=== PATIENT | female | born 1995 | race Caucasian/White ===

== ENCOUNTER 2021-10-31 11:23 | Emergency (ER) | payer BC ==
--- OUTSIDE RECORDS SUMMARY | 2021-10-31 11:26 | XMS REPORT | Continuity of Care Document ---
:1995 Author Organization [facility] t Address [address] [place] [address] Care Team Providers Name Role Phone ZEYAD Attending Clinician Unavailable Nicole Attending Clinician Unavailable RICO, Attending Clinician Unavailable RICO, Admitting Clinician Unavailable Problems This patient has no known problems. Allergies, Adverse Reactions, Alerts Allergy Allergy Status Severity Reaction(s) Onset Inactive Treating Comm ents Source Name Type Date Date Clinician No Known DA Active [facility] Medications This patient has no known medications. Vital Signs Vital Name Observation Time Observation Value Comments Source Height 2019-07-15 12:53:00 167.64 CM Weight 2019-07-15 12:53:00 74.84 KG Procedures This patient has no known procedures. Encounters Start End Encounter Admission Attending Care Care Encounter Source Date/Time Date/Time Type Type Clinicians Facility Department ID 2019-12-04 2019-12-05 Outpatient CRISTIANA WILLS [facility] [id number] [facility] 22:02:00 17:13:00 NOHA 2019-11-25 2019-11-25 Outpatient AKHIL Rivera [id number] 09:32:00 09:32:00 Sukumar Son 2019-09-29 2019-09-29 Outpatient AKHIL Rivera [id number] 14:17:00 14:17:00 Sukumar Son 2019-07-15 2019-07-15 Outpatient E EMERITA GÓMEZ [facility] [id number] 12:43:00 14:15:00 [facility] [place] 2018-08-29 2018-08-29 Outpatient AKHIL Rivera [id number] 13:14:00 13:14:[address] DUMONTRyan 2017-08-09 2017-08-09 Outpatient AKHIL Rivera [id number] [facility] 13:06:00 13:06:00 Sukumar Son Results Test Description Test Time Test Comments Results Result Comments Source [facility] 8 Panel *OW* areli 2019-07-15 13:40:00 Test Item Value Reference Range Interpretation Comme nts GLUCOSE (test code = GGUL) 91 mg/dL 73-118 BUN (test code = GBUN) 12 mg/dL 7-22 CREATININE (test code = GCRE) 0.6 mg/dL 0.6-1.2 CK TOTAL (test code = GCK) 123 U/L 30-190 SODIUM (test code = GNA+) 141 mmol/L 128-145 POTASSIUM (test code = GK+) 3.4 mmol/L 3.6-5.1 L CHLORIDE (test code = GCL-) 101 mmol/L 98-108 TCO2 (test code = GTC02) 27 mmol/L 18-33 URINALYSIS W/O MICROSCOPICOW2019-07-15 13:40:00 Test Item Value Reference Range Interpretation Comments COLOR (test code = Yellow YELLOW COLU) CLARITY (test code = Clear CLEAR CLA) GLUCOSE UR (test Negative NEGATIVE code = UA GLUCOSE) BILI UR (test code = Negative NEGATIVE BILE) KETONES UR (test Negative NEGATIVE code = MARI) SP GRAVITY (test >=1.030 1.005-1.030 code = SPGR) PH UR (test code = 6.0 4.5-8.0 PH) PROTEIN UR (test Trace NEGATIVE code = PU) NITRITE UR (test Negative NEGATIVE code = NITRITE) UROBIL UR (test code 0.2 E.U./dL = GUROQ) UROBIL UR (test code UROBILINOGEN = GUROQC) REFERENCE RANGE 0.2 - 1.0 EU/dL BLOOD UR (test code Negative NEGATIVE = UA BLOOD) LEUK ES UR (test Negative NEGATIVE code = LEUK) CBC (INCLUDES AUTOMATED DIFFERENTIAL) *2019-07-15 13:29:00 Test Item Value Reference Range Interpretation Comments WBC (test code = WBC) 7.6 10\S\3/uL 4.5-11.0 RBC (test code = RBC) 4.64 10\S\6/uL 4.30-5.70 HGB (test code = HBG) 13.2 g/dL 12.0-15.5 HCT (test code = HCT) 41.7 % 35.0-44.0 MCV (test code = MCV) 89.8 fL 81.0-99.0 MCH (test code = MCH) 28.4 pg 27.0-31.0 MCHC (test code = MCHC) 31.7 g/dL 32.0-36.0 L RDW (test code = RDW) 11.7 % 11.5-14.5 PLT (test code = PLT) 344 10\S\3/uL 130-400 MPV (test code = OMPV) 7.2 fL 6.2-10.2 NEUTROP # (test code = NE#) 4.9 10\S\3/uL 1.6-8.0 LYMPH # (test code = LY#) 2.0 10\S\3/uL 1.1-3.5 MID # (test code = GMID#) 0.7 10\S\3/uL 0.0-1.1 GRA % (test code = GRA%) 65.0 % 35.0-73.0 LYMPH % (test code = GLY%) 25.7 % 20.0-55.0 MID % (test code = GMID%) 9.3 % 0.0-10.0
[2021-10-31] MEDS ORDERED: CYCLOBENZAPRINE 10 MG TAB ONE (12:22)
[2021-10-31] MEDS ORDERED: KETOROLAC 30 MG/ML INJ ONE (12:22)
[2021-10-31 12:26] LABS: Urine Blood Trace-intact (Negative); Urine Glucose Negative (Negative); Urine Protein Negative (Negative); Urine Specific Gravity 1.025 (1.005-1.030)
--- NOTE | 2021-10-31 12:55 | EDPHYS ---
Physician Documentation [facility] Name: Naeem Capone Age: 25 yrs Sex: Female : 1995 Arrival Date: 10/31/2021 Time: 11:25 Bed 9 Private MD: ED Physician Kurt Goodson HPI: 10/31 12:00 This 25 yrs old Female presents to ER via Ambulatory with complaints of Back Pain. [facility] 12:00 The symptoms are located in the low back. Onset: The symptoms/episode began/occurred 3 jh7 day(s) ago. The pain radiates to the left leg. Associated signs and symptoms: Pertinent negatives: chest pain, numbness, tingling, weakness. Patient presents with left lower back pain radiating down buttock, extending to the left leg. She denies any trauma/injury. Describes the pain as a spasm. Denies any urinary symptoms. Denies numbness, tingling, or any neurological symptoms.. 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 - Social history:: Smoking status: Patient denies any tobacco usage or history of. ROS: 12:00 Constitutional: Negative for fever, chills, and weight loss, Cardiovascular: Negative [facility] for chest pain, palpitations, and edema, Respiratory: Negative for shortness of breath, cough, wheezing, and pleuritic chest pain, Skin: Negative for injury, rash, and discoloration, Neuro: Negative for headache, weakness, numbness, tingling, and seizure. 12:00 Back: Positive for pain with movement, radiated pain. 12:00 All other systems are negative. Exam: 12:00 Constitutional: This is a well developed, well nourished patient who is awake, alert, jh7 and in no acute distress. Cardiovascular: Regular rate and rhythm with a normal S1 and S2. No gallops, murmurs, or rubs. Normal PMI, no JVD. No pulse deficits. Respiratory: Lungs have equal breath sounds bilaterally, clear to auscultation and percussion. No rales, rhonchi or wheezes noted. No increased work of breathing, no retractions or nasal flaring. Abdomen/GI: Soft, non-tender, with normal bowel sounds. No distension or tympany. No guarding or rebound. No evidence of tenderness throughout. Skin: Warm, dry with normal turgor. Normal color with no rashes, no lesions, and no evidence of cellulitis. MS/ Extremity: Pulses equal, no cyanosis. Neurovascular intact. Full, normal range of motion. Neuro: Awake and alert, GCS 15, oriented to person, place, time, and situation. Motor strength 5/5 in all extremities. Sensory grossly intact. Normal gait. 12:00 Back: pain, that is moderate, of the left low back, CVA tenderness, is absent, Left lower back/buttock pain radiating down left lower extremity, worsening with movement. There is no tenderness to palpation, bruising, swelling, or any signs of injury/trauma. . 12:00 Neuro: Orientation: is normal, Sensation: is normal, Gait: is steady. [facility] Vital Signs: 11:55 BP 120 / 76; Pulse 65; Resp 16 S; Temp 98.0(TE); Pulse Ox 99% on R/A; Weight 71.21 kg aa5 (R); Height 5 ft. 8 in. (172.72 cm) (R); Pain 7/10; 11:55 Body Mass Index 23.87 (71.21 kg, 172.72 cm) aa5 MDM: 12:02 Patient medically screened. [facility] 13:00 Data reviewed: vital signs, nurses notes. Data interpreted: Pulse oximetry: is 99 %. [facility] Interpretation: normal. Counseling: I had a detailed discussion with the patient and/or guardian regarding: the historical points, exam findings, and any diagnostic results supporting the discharge/admit diagnosis, to return to the emergency department if symptoms worsen or persist or if there are any questions or concerns that arise at home. 13:00 ED course: The patient remained hemodynamically stable throughout the ER visit. Her [facility] symptoms significantly improved after Toradol administration. Clinical presentation consistent with sciatica. She was prescribed anti-inflammatories and muscle relaxers. PCP follow-up advised. She develops any new concerning symptoms, return to the ER for further eval. The patient agreed with the plan of care.. 10/31 12:27 Order name: Urine Dipstick-Ancillary; Complete Time: 12:31 [facility] 10/31 12:46 Order name: Urine --Ancillary (enter results) bd Administered Medications: 12:33 Drug: Ketorolac 60 mg Route: IM; Site: left gluteus; aa5 13:16 Follow up: Response: No adverse reaction ss 12:33 Drug: Flexeril (cyclobenzaprine) 10 mg Route: PO; aa5 13:16 Follow up: Response: No adverse reaction; Marked relief of symptoms ss Disposition: 18:15 Co-signature as Attending Physician, Kurt Goodson MD. rn Disposition Summary: 10/31/21 12:55 Discharge Ordered Location: Home [facility] Problem: new [facility] Symptoms: have improved [facility] Condition: Stable [facility] Diagnosis - Sciatica, left side jh7 Followup: [facility] - With: Private Physician - When: 2 - 3 days - Reason: Recheck today's complaints Discharge Instructions: - Discharge Summary Sheet [facility] - Sciatica [facility] - Back Exercises [facility] Forms: - Work release form ss - Medication Reconciliation Form [facility] - Thank You Letter [facility] Prescriptions: - Naprosyn 500 mg Oral Tablet - take 1 tablet by ORAL route 2 times per day take with food; 30 tablet; Refills: [facility] 0, Product Selection Permitted - Zanaflex 4 mg Oral Tablet - take 1 tablet by ORAL route every 8 hours As needed; 20 tablet; Refills: 0, jh7 Product Selection Permitted Signatures: Dispatcher [employer] Kurt Pearce MD MD rn Calderon, Audri, RN RN aa5 Matilde Noel FNP [place] [id number] Marilu Abraham RN
--- NOTE | 2021-10-31 12:55 | ER ---
Nurse's Notes [facility] Name: Naeem Capone Age: 25 yrs Sex: Female : 1995 Arrival Date: 10/31/2021 Time: 11:25 Bed 9 Private MD: Diagnosis: Sciatica, left side Presentation: 10/31 11:55 Chief complaint: Patient states: left low back pain radiating down left leg that began aa5 Saturday. Coronavirus screen: At this time, the client does not indicate any symptoms associated with coronavirus-19. Ebola Screen: No symptoms or risks identified at this time. Initial Sepsis Screen: Does the patient meet any 2 criteria? No. Patient's initial sepsis screen is negative. Does the patient have a suspected source of infection? No. Patient's initial sepsis screen is negative. Risk Assessment: Do you want to hurt yourself or someone else? Patient reports no desire to harm self or others. Onset of symptoms was October 2021. 11:55 Method Of Arrival: Ambulatory aa5 11:55 Acuity: STEPHEN 4 aa5 Triage Assessment: 11:56 General: Appears uncomfortable, Behavior is calm, cooperative. Pain: Complains of pain aa5 in left low back Pain radiates to left leg. EENT: No signs and/or symptoms were reported regarding the EENT system. Neuro: Level of Consciousness is awake, alert, obeys commands, Oriented to person, place, time, situation. Cardiovascular: Patient's skin is warm and dry. Respiratory: Airway is patent Respiratory effort is even, unlabored, Respiratory pattern is regular, symmetrical. GI: No signs and/or symptoms were reported involving the gastrointestinal system. : Denies burning with urination, inability to void, urinary frequency, urgency. Derm: Skin is pink, warm \T\ dry. Musculoskeletal: Range of motion: intact in all extremities. 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 - Social history:: Smoking status: Patient denies any tobacco usage or history of. Screenin:16 Abuse screen: Denies threats or abuse. Denies injuries from another. Nutritional ss screening: No deficits noted. Tuberculosis screening: Never had TB. Fall Risk None identified. Assessment: 12:33 Reassessment: Patient is alert, oriented x 3, equal unlabored respirations, skin aa5 warm/dry/pink. 13:16 Reassessment: Patient appears in no apparent distress at this time. Patient and/or ss family updated on plan of care and expected duration. Pain level reassessed. Patient is alert, oriented x 3, equal unlabored respirations, skin warm/dry/pink. Patient states feeling better. Patient states symptoms have improved. Vital Signs: 11:55 BP 120 / 76; Pulse 65; Resp 16 S; Temp 98.0(TE); Pulse Ox 99% on R/A; Weight 71.21 kg aa5 (R); Height 5 ft. 8 in. (172.72 cm) (R); Pain 7/10; 11:55 Body Mass Index 23.87 (71.21 kg, 172.72 cm) aa5 ED Course: 11:25 Patient arrived in ED. mr 11:50 Matilde Noel, [facility] 11:50 Kurt Goodson MD is Attending Physician. 7 11:54 Arm band placed on. aa5 11:56 Triage completed. aa5 12:12 Nellie Bella, RN is Primary Nurse. aa5 13:16 Patient has correct armband on for positive identification. Bed in low position. Call ss light in reach. 13:16 No provider procedures requiring assistance completed. Patient did not have IV access ss during this emergency room visit. Administered Medications: 12:33 Drug: Ketorolac 60 mg Route: IM; Site: left gluteus; aa5 13:16 Follow up: Response: No adverse reaction ss 12:33 Drug: Flexeril (cyclobenzaprine) 10 mg Route: PO; aa5 13:16 Follow up: Response: No adverse reaction; Marked relief of symptoms ss Medication: 13:16 VIS not applicable for this client. ss Outcome: 12:55 Discharge ordered by . [facility] 13:16 Discharged to home ambulatory. ss 13:16 Condition: good 13:16 Discharge instructions given to patient, family, Instructed on discharge instructions, follow up and referral plans. medication usage, Demonstrated understanding of instructions, follow-up care, medications, Prescriptions given X 2. 13:16 Patient left the ED. Signatures: Luis Carlos Yolette matthews BellaNellie bowman RN RN aa5 Marilu Abraham RN RN Matilde Cooley, OCCUPATIONAL PSYCHOLOGIST OCCUPATIONAL PSYCHOLOGIST jh7 Corrections: (The following items were deleted from the chart) 11:56 11:55 BP 120 / 76; Pulse 65bpm; Resp 16bpm; Spontaneous; Pulse Ox 99% RA; Temp 98.0F aa5 Temporal; 71.21 kg Reported; Height 5 ft. 8 in. Reported; BMI: 23.8; aa5
[2021-10-31 13:22] VITALS: BP 120/76; TEMP 98; O2SAT 99
[2021-10-31 16:03] LABS: Urine Specific Gravity/Preg 1.025 (1.005-1.030)
== END 2021-10-31 13:16 | disposition home or self-care (01) ==
LOC: ER 11:23
DX: M54.32 Sciatica, left side (principal)
CPT/HCPCS: 81003; 81025; 96372; 99283

== ENCOUNTER 2022-05-27 17:39 | Emergency (ER) | payer BC ==
--- OUTSIDE RECORDS SUMMARY | 2022-05-27 17:51 | XMS REPORT | Continuity of Care Document ---
:1995 Author Organization [facility] t Address [address] [place] [address] Care Team Providers Name Role Phone Kaitlynn Buenrostro Attending Clinician Kin Broderick Attending Clinician KIN BRODERICK Attending Clinician Unavailable Melecio Ulrich Attending Clinician Laly Blake Attending Clinician GABRIEL JEFFERS Attending Clinician Unavailable Gabriel Jeffers Attending Clinician Sukumar Rivera Attending Clinician Unavailable DR EMERITA GÓMEZ Attending Clinician Unavailable Kenny Hayes Attending Clinician Bryn Agustin Attending Clinician Tae Santamaria Attending Clinician DR EMERITA GÓMEZ Admitting Clinician Unavailable Problems Condition Condition Condition Status Onset Resolution Last Treating Co mments Source Name Details Category Date Date Treatment Clinician Date Patient Patient Diagnosis Active 2021-062022-04-16 Memoria encounter encounter 06-13 04:11:35 l status status 00:00: Migel (finding) (finding) 00 Active 04/13/2022 Diagnosis 04/16/2022 [facility] ABD PAIN ABD PAIN Diagnosis Active 2022-01-08 Memoria Active 01-08 13:32:00 l 01/08/2022 00:00: Shawn matthew [address] HEAD HEAD Diagnosis Active 2019-062020-06-14 Mem oria INJURY/FAL INJURY/FAL 07-07 13:23:00 l L L Active 00:00: Migel 05/07/2020 00 [facility] CHEST PAIN CHEST Diagnosis Active 2021-02-08 Memoria PAIN 12-03 09:10:00 l Active 00:00: [place] 12/04/2019 00 [facility] Contracept Problem Active 2022-02-23 M emoria ion care Contracept 12-31 00:09:25 l management ion care 00:00: Barb isbell (procedure management 00 ) (procedure ) Active 12/31/2014 Problem 02/23/2022 Data migrated from [employer] on 01/12/15. [facility] Fibrocysti Fibrocyst Problem Active 2022-02-23 Memoria c disease ic disease 3 00:09:25 l of breast of breast 00:00: Barb isbell (disorder) (disorder) 00 Active 08/18/2014 Problem 02/23/2022 Data migrated from [employer] on 12/15/14. [facility] Headache Headache Problem Active 2022-02-23 Memoria (finding) (finding) 3 00:09:25 l Active 00:00: Migel 08/18/2014 00 Problem 02/23/2022 Data migrated from [employer] on 12/15/14. [facility] Nausea and Nausea Problem Active 2021-06-26 Memoria vomiting and 3 23:46:04 l (disorder) vomiting 00:00: Barb akilah (disorder) 00 Active 08/18/2014 Problem 06/26/2021 Data migrated from [employer] on 12/15/14. [facility] Contusion Contusion Problem Active 2022-02-23 Memoria (disorder) (disorder) 2-10 00:09:25 l Active 00:00: Migel 07/20/2014 00 Problem 02/23/2022 Data migrated from [employer] on 12/15/14. Medical Group,[facility] Low back Low back Problem Active 2022-02-23 Memoria pain pain 9- 00:09:25 l (disorder) (disorder) 00:00: He rmann Active 00 02/12/2014 Problem 02/23/2022 Data migrated from [employer] on 11/06/14. Medical Group,[facility] Scoliosis Scoliosis Problem Active 2022-02-23 Memoria deformity deformity 02-12 00:09:25 l of spine of spine 00:00: Shawn n (disorder) (disorder) 00 Active 02/12/2014 Problem 02/23/2022 Data migrated from [employer] on 11/06/14. Medical Group,[facility] Dyspnea Dyspnea Problem Active 2022-02-23 Me moria (finding) (finding) 01-04 00:09:25 l Active 00:00: Migel 01/04/2014 00 Problem 02/23/2022 Data migrated from [employer] on 11/06/14. Medical Group,[facility] Asthma Asthma Problem Active 2017-11-12 Mem oria (disorder) (disorder) 7- 11:01:28 l Active 00:00: [place] 12/17/2013 00 Problem 11/12/2017 Data migrated from [employer] on 11/06/14. Medical Group Malaise Malaise Problem Active 2012-062021-06-26 Me moria and and 0 23:46:04 l fatigue fatigue 00:00: [place] (finding) (finding) 00 Active 03/24/2013 Problem 06/26/2021 Data migrated from [employer] on 11/06/14. Medical Group,[facility] Deformity Deformity Problem Active 2022-02-23 Memoria of foot of foot 8-20 00:09:25 l (finding) (finding) 00:00: Herm akilah Active 00 01/27/2013 Problem 02/23/2022 Data migrated from [employer] on 11/06/14. Medical Group,[facility] Pes planus Pes Problem Active 2022-02-23 Darek mcmahan (disorder) planus 8 00:09:25 l (disorder) 00:00: Shawn matthew Active 00 01/27/2013 Problem 02/23/2022 [facility] 11/06/14. Medical Group,[facility] OTHER OTHER Diagnosis Active 2012-10-24 Mem oria Active 10-24 18:26:00 l 10/24/2012 12:00: Shawn n [place] [address] [address] SNAKE BITE SNAKE Diagnosis Active 2012-10-22 Memoria BITE 10-16 21:46:00 l Active 00:00: Migel 10/16/[address] [facility] POSS SNAKE POSS Diagnosis Active 2012-10-16 Memoria BITE ON SNAKE BITE 10-16 11:07:00 l FOOT ON FOOT 00:00: Migel Active 00 10/16/2012 [place] FLANK FLANK Diagnosis Active 2012-07-22 Mem oria PAIN-LEFT PAIN-LEFT 07-22 12:19:00 l SIDE SIDE 00:00: Migel Active 00 07/22/2012 [facility] ASTHMA ASTHMA Condition Active 2012-07-29 Me moria Active 12-05 09:59:54 l 12/06/2011 00:00: Shawn n Condition 00 07/29/2012 [facility] ADHD ADHD Condition Active 2012-07-29 Mem oria Active 12-05 09:59:54 l 12/06/2011 00:00: Shawn n Condition 00 07/29/2012 [facility] ABDOMINAL Diagnosis Active 2011-11-28 Memoria PAIN,FEVER ABDOMINAL 11-24 08:14:00 l , PAIN,FEVER 08:00: Shawn matthew , Active 00 11/25/2011 [place] TOXIC TOXIC Diagnosis Active 2012-10-22 Mem oria EFFECT EFFECT 21:46:00 l VENOM VENOM [place] Active 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 09:59:54 l LEG JOINT LOWER LEG Herm akilah KNEE JOINT KNEE Active Condition 07/29/2012 [facility] BACK PAIN, BACK Condition Active 2012-07-29 Memoria LUMBAR PAIN, 09:59:54 l LUMBAR [place] Active Condition 07/29/2012 [facility] Attention Attention Problem Active 2022-05-21 Memoria deficit deficit 10:37:33 l hyperactiv hyperactiv He rmann ity ity disorder disorder (disorder) (disorder) Active Problem 05/21/2022 [facility] Finding of Finding Problem Active 2022-05-21 Memoria protein of protein 10:37:33 l level level Migel (finding) (finding) Active Problem 05/21/2022 [facility] Anxiety Anxiety Problem Active 2022-05-21 Me moria (finding) (finding) 10:37:33 l Active [place] Problem 05/21/2022 [facility] 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 Anxiety Anxiety Diagnosis 2021-062022-04-16 2022-04-16 Memoria disorder disorder 1-04 04:11:35 04:11:35 l (disorder) (disorder) 16:02: He rmann 04/13/2022 00 Diagnosis 04/16/2022 Medical Group Recurrent Recurrent Diagnosis 2021-062022-04-16 2022-04-16 Memoria major major 1-04 04:11:35 04:11:35 l depression depression 16:02: He rmann (disorder) (disorder) 00 04/13/2022 Diagnosis 04/16/2022 Medical Group Well adult Well Diagnosis 2021-062022-04-16 2022-04-16 Memoria monitoring adult 1- 04:11:35 04:11:35 l check done monitoring 16:02: He rmann (finding) check done 00 (finding) 04/13/2022 Diagnosis 04/16/2022 Medical Group Epigastric Epigastri Problem Resolve 2022-02-23 2022-02-23 Memoria pain c pain d 3-11 00:09:25 00:09:25 l (finding) (finding) 00:00: Herm akilah Resolved 00 08/18/2014 Problem 02/23/2022 Data migrated from [employer] on 12/15/14. Medical Group,[facility] Snake bite Snake Problem Resolve 2022-02-23 2022-02-23 Memoria - wound bite - d 5-09 00:09:25 00:09:25 l (disorder) wound 00:00: Shawn n (disorder) 00 Resolved 10/16/2012 Problem 02/23/2022 Data migrated from [employer] on 12/25/14.<b r/>Data migrated from [employer] on 12/24/14. Medical Group,[facility] Backache Backache Problem Resolve 2011-062022-02-23 2022-02-23 Memoria (finding) (finding) d 0-04 00:09:25 00:09:25 l Resolved 00:00: Migel 03/13/2012 00 Problem 02/23/2022 Data migrated from [employer] on 12/25/14.<b r/>Data migrated from [employer] on 12/24/14. Medical Group,[facility] Acute Acute Problem Resolve 2022-02-232022-022022-02-23 Memoria pharyngiti pharyngiti d 9 00:09:25 00:09:25 l s s 00:00: Migel (disorder) (disorder) 00 Resolved 02/13/2012 Problem 02/23/2022 Data migrated from [employer] on 12/25/14.<b r/>Data migrated from [employer] on 12/25/14.<b r/>Data migrated from [employer] on 12/24/14.<b r/>Data migrated from [employer] on 12/24/14. Medical [facility] Viral Viral Problem Resolve 2022-02-23 2022-02-23 Memoria disease disease d 11-16 00:09:25 00:09:25 l (disorder) (disorder) 00:00: He rmann Resolved 00 11/17/2011 Problem 02/23/2022 Data migrated from [employer] on 12/25/14.<b r/>Data migrated from [employer] on 12/24/14. Medical [facility] History of Past Illness Condition Condition Condition Status Onset Resolution Last Treating Co mments Source Name Details Category Date Date Treatment Clinician Date Gastritis, Gastritis Problem 2022-01-10 2022-01-10 Memoria unspecifie , 01-08 23:04:12 23:04:12 l d, without unspecifie 20:16: He rmakilah bleeding d, without 00 bleeding 01/08/2022 01/10/2022 [facility] Major Major Problem 2021-10-22 2021-10-22 M emoria depressive depressive 10-19 02:37:49 02:37:49 l disorder, disorder, 16:31: Herm akilha recurrent, recurrent, 00 unspecifie unspecifie d d 10/19/2021 2 [facility] Group Anxiety Anxiety Problem 2021-10-22 2021-10-22 Memoria disorder, disorder, 10-19 02:37:49 02:37:49 l unspecifie unspecifie 16:31: He rmann d d 00 10/19/2021 2 [facility] Group Other Other Problem 2021-10-22 2021-10-22 M emoria fatigue fatigue 10-19 02:37:49 02:37:49 l 10/19/2021 16:30: Shawn n 10/22/2021 00 Medical Group Attention- Attention Problem 2021-2021-10-22 2021-10-22 Memoria deficit -deficit 10-19 02:37:49 02:37:49 l hyperactiv hyperactiv 16:30: He maggie ity ity 00 disorder, disorder, unspecifie unspecifie d type d type 10/19/2021 10/22/2021 Medical Group Unspecifie Unspecifi Problem 2019-062020-05-09 2020-05-09 Memoria d injury ed injury 07-07 22:06:03 22:06:03 l of head, of head, 18:00: Shawn n initial initial 00 encounter encounter 05/07/2020 05/09/2020 [facility] Sprain of Sprain of Problem 2019-062020-05-09 2020-05-09 Memoria joints and joints and 07-07 22:06:03 22:06:03 l ligaments ligaments 18:00: Herm akilah of of 00 unspecifie unspecifie d parts of d parts of neck, neck, initial initial encounter encounter 05/07/2020 05/09/2020 [facility] Abrasion Abrasion Problem 2019-062020-05-09 2020-05-09 Memoria of scalp, of scalp, 07-07 22:06:03 22:06:03 l initial initial 18:00: Migel encounter encounter 00 05/07/2020 0 [facility] Discharge Discharge Problem 2014-09-17 2014-09-17 Memoria Diagnosis: Diagnosis: 09-15 19:58:37 19:58:37 l Acute Acute 05:00: Migel asthma asthma 00 exacerbati exacerbati on on 09/15/2014 5 [facility] [place] Allergies, Adverse Reactions, Alerts Allergy Allergy Status Severity Reaction(s) Onset Inactive Treating Comm ents Source Name Type Date Date Clinician No Known DA Active [facility] Social History Social Habit Start Date Stop Date Quantity Comments Source Social History 2020-05-07 2020-05-07 [facility] 09:32:15 09:32:15 Smoking Status Start Date Stop Date Source Tobacco smoking status [facility] Medications Ordered Filled Start Stop Current Ordering Indication Dosage Frequency Signature Comments Components Source Medication Medication Date Date Medication? Clinician (SIG) Name Name Prateek Odonnell 2021-06 Yes 40 mg = 1 Me moria mg oral 2-09 cap, PO, l capsule 15:07: QAM, # 30 Past[place] nn 00 cap, 0 Refill(s), Pharmacy: [id number], 172.72, cm, 04/13/22 13:37:00 CDT, Height, 66.364, kg, 04/13/22 13:41:00 CDT, Weight Prateek 40 2021-06 Yes 40 mg = 1 Me moria mg oral 0-25 cap, PO, l capsule 21:14: QAM, # 30 Pastora nn 00 cap, 0 Refill(s), Pharmacy: [facility] #[id number], 172.72, cm, 01/08/22 14:13:00 CDT, Height, 69.4, kg, 01/08/22 14:13:00 CDT, Weight Prateek 40 Yes 40 mg = 1 Me moria mg oral 9-12 cap, PO, l capsule 18:25: QAM, # 30 Pastora nn 00 cap, 0 Refill(s), Pharmacy: [facility] #[id number], 172.72, cm, 01/08/22 14:13:00 CDT, Height, 69.4, kg, 01/08/22 14:13:00 CDT, Weight Pepcid 20 Yes 20 mg = 1 Mem oria mg oral 8-01 tab, PO, l tablet 20:17: BID, # 60 Shawn n 00 tab, 0 Refill(s), Pharmacy: [facility] #[id number], 172.72, cm, 01/08/22 14:13:00 CDT, Height, 69.4, kg, 01/08/22 14:13:00 CDT, Weight Carafate 1 Yes 1 gm = 10 Me moria g/10 mL 8-01 ml, PO, l oral 20:17: QID-Before [place] suspension 00 Meals, # 400 ml, 0 Refill(s), Pharmacy: [facility] #[id number], 172.72, cm, 01/08/22 14:13:00 CDT, Height, 69.4, kg, 01/08/22 14:13:00 CDT, Weight Saline No Notes: Memoria Flush 0.9% 01-08 (Same as: l 16:48: BD Migel 00 Posiflush) Sodium No 1,000 mL, Memori a Chloride 01-08 1000 l 0.9% 16:48: ml/hr, [place] (Bolus) IV 00 Infuse Over: 1 hr, Route: IV, 1,000, Drug form: INJ, ONCE, Priority: STAT, Dosing Weight 69.4 kg, Start date: 01/08/22 11:48:00 CDT, Stop date: 01/08/22 11:48:00 CDT, 0 ondansetron No Notes: Rafal roxanna 01-08 (Same as: l 16:48: Zofran) [place] 00 MEDICATION WASTE Product Size: 4 mg Product Wasted: __0_ mg famotidine No Notes: Memor ia 01-08 (Same as: l 16:48: Pepcid) [place] Can be dilute in 5-10cc NS IVP: Slow IV push over at least 2 minutes. GI cocktail No Notes: Rafal roxanna WITHOUT 01-08 (aluminum l lidocaine 16:47: hydroxide- He rmann (aluminum 00 magnesium hydroxide/m hyd-simeth agnesium icone hydroxide/s 200-200-20 imethicone) mg/5ml 30 ml ud PAULINA) Vyvanse 40 Yes 40 mg = 1 Me moria mg oral 7-26 cap, PO, l capsule 22:48: QAM, # 30 Pastora nn 00 cap, 0 Refill(s), Pharmacy: [facility] #[id number], 172.72, cm, 03/28/21 16:34:00 CDT, Height, 72.727, kg, 10/19/21 11:02:00 CDT, Weight Vyvanse 30 Yes 30 mg = 1 Me moria mg oral 5-12 cap, PO, l capsule 16:26: QAM, # 30 Pastora nn 00 cap, 0 Refill(s), Pharmacy: [facility] #[id number], 172.72, cm, 03/28/21 16:34:00 CDT, Height, 72.727, kg, 10/19/21 11:02:00 CDT, Weight lisdexamfet Yes 20 mg = 1 M emoria amine 1-14 cap, PO, l dimesylate 22:14: QAM, # 30 He rmann 20 MG Oral 00 tab, 0 Capsule Refill(s), [Vyvanse] Pharmacy: [facility] #[id number], 172.72, cm, 03/28/21 16:34:00 CDT, Height, 70.455, kg, 03/28/21 16:35:00 CDT, Weight lisdexamfet 2020-06 Yes 20 mg = 1 M emoria amine 1-16 cap, PO, l dimesylate 22:49: QAM, # 30 He rmann 20 MG Oral 00 tab, 0 Capsule Refill(s), [Vyvanse] Pharmacy: [facility] #[id number], 172.72, cm, 03/28/21 16:34:00 CDT, Height, 70.455, kg, 03/28/21 16:35:00 CDT, Weight FLUoxetine 2020-06 Yes 10 mg = 1 Me moria 10 mg oral 0-19 cap, PO, l capsule 21:45: Daily, # Shawn n 00 90 cap, 0 Refill(s), Pharmacy: [facility] #[id number], 172.72, cm, 03/28/21 16:34:00 CDT, Height, 70.455, kg, 03/28/21 16:35:00 CDT, Weight non-formula 2020-06 Yes Memor ia ry 0-19 control, l 21:38: Refill(s) Migel 00 0 influenza 2020-06 No /= 6 Memoria virus 0-04 months l vaccine, 20:17: (FLUZONE). Her maldonado inactivated 00 , Start date: 03/13/21 15:17:00 CDT, Stop date: 03/13/21 15:17:00 CDT lisdexamfet 2020-06 Yes 20 mg = 1 M emoria amine 0-04 cap, PO, l dimesylate 20:09: QAM, # 30 He rmann 20 MG Oral 00 tab, 0 Capsule Refill(s), [Vyvanse] Pharmacy: [id number], 172.72, cm, 03/13/21 14:28:00 CDT, Height, 70.455, kg, 03/13/21 14:28:00 CDT, Weight Acetaminoph 2019-06 No Notes: Do M emoria en 300 MG / 07-07 not exceed l Codeine 10:01: 4gm/day of Herm akilah Phosphate 00 acetaminop 30 MG Oral hen. (Same Tablet as: [Tylenol Tylenol with with Codeine #3] Codeine # 3) 0.5 ML 2019-06 No Notes: Memoria Bordetella 07-07 Therapeuti l pertussis 09:52: c Migel filamentous 00 Interchang hemagglutin e for in vaccine, Boostrix inactivated 0.016 MG/ML / Bordetella pertussis pertactin vaccine, inactivated 0.005 MG/ML / Bordetella pertussis toxoid vaccine, inactivated 0.016 MG/ML / diphtheria toxoid vaccine, inactivate Zofran ODT 2019-06 No 4 mg, Memori a 07-07 Route: PO, l 09:28: Drug form: Migel 00 TABDIS, ONCE, Dosing Weight 83.864, kg, Priority: STAT, Start date: 05/07/20 3:28:00 TUR[employer] EGG G[employer]ER, Stop date: 05/07/20 3:28:00 TUR[employer] EGG GATH[employer]ER Aspirin Low Yes 81 mg = 1 M emoria Dose 81 mg 6-27 tab, CHEW, l oral 21:19: Daily, # Migel tablet, 00 30 tab, 0 chewable Refill(s), Pharmacy: [id number], 172.72, cm, 12/05/19 0:45:00 CDT, Height, 79.773, kg, 12/05/19 0:45:00 CDT, Weight Saline No Notes: Memoria Flush 0.9% 6-27 (Same as: l 14:00: BD Migel 00 Posiflush) Citalopram No Notes: Memor ia - (Same As: l 14:00: CeleXA) Lovenox No Notes: Memoria - (Same as: l 10:00: Lovenox) Albuterol No Notes: SEE Me moria 0.83 MG/ML 12-04 RT l Inhalant 04:27: DOCUMENTAT Her maldonado Solution 00 ION (Same as: Proventil) morphine No Notes: Memoria 0.5 mg/mL 12-04 (Same l preservativ 04:26: as:MORPhin Migel e-free 00 e Sulfate) injectable solution Acetaminoph No Notes: Rafal roxanna en 325 MG / 12-04 (Same as: l Hydrocodone 04:26: [place] Pastora nn Bitartrate 00 325/5) Do 5 MG Oral not exceed Tablet 4gm/day of [[place] acetaminop 5/325] hen. Dextrose No 12.5 gm, Memor ia 50% Syringe 12-04 25 mL, l (D50W) 04:25: Route: IVP, Drug Form: INJ, Dosing Weight 83.8, kg, PRN, PRN Blood Glucose Results, Start date: 12/04/19 23:25:00 CDT, Duration: 30 day, Stop date: 01/03/20 23:24:00 CDT, 0 Glucagon No 1 mg, Memoria 12-04 Route: IM, l 04:25: Drug form: PDR/INJ, PRN, Dosing Weight 83.8, kg, PRN Blood Glucose Results, Start date: 12/04/19 23:25:00 CDT, Duration: 30 day, Stop date: 01/03/20 23:24:00 CDT, 0 Ondansetron No Notes: Rafal roxanna - (Same as: l 04:25: Zofran) MEDICATION WASTE Product Size: 4 mg Product Wasted: ___ mg Melatonin No Notes: Memori a 12-04 (Same as: l 04:25: Melatonin) Acetaminoph No Notes: Do M emoria en 12-04 not exceed l 04:25: 4 gm/day. Migel (Same as: Tylenol) citalopram Yes 10 mg = 1 Me moria 10 mg oral 12-04 tab, PO, l tablet 04:00: Daily, # Migel 00 30 tab, 0 Refill(s) Nitroglycer No Notes: Rafal roxanna in 12-04 (Same l 03:20: as:Nitroqu [place] 00 ick, Nitrostat) "Do Not Crush" Sublingual tablet Saline No Notes: Memoria Flush 0.9% 12-04 (Same as: l 03:20: BD [place] Posiflush) Omnipaque No Notes: Memori a 350 12-04 (same l injectable 02:07: as:Omnipaq H ermann solution ue 350). WASTE: F/P - Black; E - [employer] Aspirin 81 No 324 mg, Rafal roxanna MG Chewable 12-04 Route: PO, l Tablet 02:02: Drug form: Pastora nn 00 CHEWTAB, ONCE, Dosing Weight 83.8, kg, Priority: STAT, Start date: 12/04/19 21:02:00 CDT, Stop date: 12/04/19 21:02:00 CDT Morphine No 4 mg, Memoria 12-04 Route: l 02:02: IVP, ONCE, Dosing Weight 83.8, kg, Priority: STAT, Start date: 12/04/19 21:02:00 CDT, Stop date: 12/04/19 21:02:00 CDT Saline No Notes: Memoria Flush 0.9% 12-03 (Same as: l 23:56: BD Migel Posiflush) Sodium No 1,000 mL, Memori a Chloride 12-03 1000 l 0.9% 23:56: ml/hr, Migel (Bolus) IV 00 Infuse Over: 1 hr, Route: IV, 1,000, Drug form: INJ, ONCE, Priority: STAT, Dosing Weight 83.8 kg, Start date: 12/04/19 18:56:00 CDT, Stop date: 12/04/19 18:56:00 CDT, 0 Ketorolac No 4 days Memor ia 6-26 l 23:56: MEDICATION Migel 00 WASTE Product Size: 30 mg Product Wasted: ___ mg ProAir HFA Yes 2 puff, Rafal roxanna 90 mcg/inh 9-16 INHALER, l inhalation 20:15: Q4H, PRN Her maldonado aerosol 00 for with wheezing, adapter # 1 ea, 6 Refill(s) predniSONE Yes Special Rafal roxanna 20 mg oral 4-08 Instructio l tablet 08:13: ns: Take 3 Pastora nn 00 tablets for 60 mg dose albuterol Yes 2 puff, Memor ia 90 mcg/inh 4-08 INHALATION l inhalation 08:13: , Q6H, PRN H ermann aerosol 00 Wheezing, # 2 unit, 0 Refill(s) clindamycin Yes Juan Francisco C 300 mg, 1 Memoria 300 mg oral 5-18 Johnson cap, PO, l capsule 00:56: Q6H, 40 [place] 44 cap, Substituti on Allowed clindamycin No Juan Francisco C 600 mg, Memoria 5-17 Johnson Route: l 23:41: IVPB, Migel 00 ONCE, Dosing Weight 48.892, kg, Pediatric dosing, Priority: STAT, Start date: 10/24/12 18:41:00, Stop date: 10/24/12 18:41:00, Patient's Own Meds: Zofran No Juan Francisco C 4 mg, Memoria 5-17 Johnson Route: l 23:40: IVP, Drug form: INJ, ONCE, Dosing Weight 48.892, kg, Priority: STAT, Start date: 10/24/12 18:40:00, Stop date: 10/24/12 18:40:00 morphine No Juan Francisco C 1 mg, Memor ia Sulfate 5-17 Johnson Route: l 23:40: IVP, ONCE, [place] 00 Dosing Weight 48.892, kg, Start date: 10/24/12 18:40:00, Stop date: 10/24/12 18:40:00 morphine No Soumya Loan 2 mg, 1 Memoria Sulfate 5-10 Cordon mL, Route: l 19:51: IV, Drug form: INJ, Q4H, Dosing Weight 48.5, kg, PRN Pain Score 7-10, Start date: 10/17/12 14:51:00, Duration: 30 day, Stop date: 11/16/12 14:50:00, Pediatric DosingPedi atric Dosing ibuprofen 2012- No Oumou M 400 mg, 1 Memoria 5-10 Braly tab, l 18:53: Route: PO, Drug form: TAB, Q6H, Dosing Weight 48.5, kg, PRN Pain/Fever , Start date: 10/17/12 13:53:00, Duration: 30 day, Stop date: 11/16/12 13:52:00, > 40 kg; Pediatric Dosing 40 kg; Pediatric Dosing clindamycin No Soumya Loan 485 mg, Memoria 5-10 Cordon 48.5 mL, l 02:30: Route: IV, Drug form: INJ, ABXQ6H, Dosing Weight 48.5, kg, Start date: 10/16/12 21:30:00, Duration: 30 day, Stop date: 11/15/12 15:30:00, Pediatric DosingPedi atric Dosing morphine 2012- No Oumou M 2 mg, 1 Memoria Sulfate 5-10 Braly mL, Route: l 01:51: IV, Drug form: INJ, Q4H, Dosing Weight 48.5, kg, PRN Pain Score 7-10, Start date: 10/16/12 20:51:00, Duration: 30 day, Stop date: 11/15/12 20:50:00, Pediatric DosingPedi atric Dosing morphine 2012-0 No Matthew 5 mg, Memoria Sulfate 5-10 Juan Alberto Route: IV, l 01:37: Pool Drug form: Migel 00 INJ, Q4H, Dosing Weight 48.5, kg, PRN Pain Score 7-10, Start date: 10/16/12 20:37:00, Duration: 30 day, Stop date: 11/15/12 20:36:00, Pediatric DosingPedi atric Dosing D5W 1/2NS + 2012-0 No Soumya Loan 1,000 mL, Memoria KCL 20mEq/L 5-10 Cordon Rate: 90 l 1000ml 01:36: ml/hr, Migel (Premix) 00 Infuse 1,000 mL over: 11.1 hr, Route: IV, Dosing Weight 48.5 kg, Total Volume: 1,000, Start date: 10/16/12 20:36:00, Duration: 30 day, Stop date: 11/15/12 20:35:00 lidocaine No Matthew 1 appl, Rafal roxanna topical 4% 5-10 Juan Albreto Route: l cream 01:36: Corine BANUELOS, PRN, [place] 00 Drug form: KIT, PRN Procedure, Start date: 10/16/12 20:36:00, Duration: 30 day, Stop date: 11/15/12 20:35:00 ethyl No Matthew 1 spray, Memoria chloride 5-10 Juan Alberto Route: l topical 01:36: Pool TOP, PRN, Pastora nn 00 Drug form: SPRY, PRN Procedure, Start date: 10/16/12 20:36:00, Duration: 30 day, Stop date: 11/15/12 20:35:00 lidocaine-t No Matthew 1 patch, M emoria etracaine 5-10 Juan Alberto Route: l topical 70 01:36: Corine BANUELOS, Drug He rmann mg-70 mg 00 Form: film FILM, Dosing Weight 48.5, kg, PRN, PRN Procedure, Start date: 10/16/12 20:36:00, Duration: 30 day, Stop date: 11/15/12 20:35:00 [place] No Danica L 1 tab, Memoria 10/325 oral 10-16 Huseyin Route: PO, l tablet 21:50: Drug Form: Pastora nn 00 TAB, Dosing Weight 47.727, kg, ONCE, Start date: 10/16/12 16:50:00, Stop date: 10/16/12 16:50:00 Focalin XR Yes 30 mg, 1 Mem oria 30 mg oral 10-16 cap, PO, l capsule, 19:14: Migel HORTON extended 02 Substituti release on Allowed Crofab + No Gail 250 ml/hr, M emoria Sodium 10-16 [facility] Route: IV, l Chloride 18:10: Drug Form: Her maldonado 0.9% IV 250 00 INJ, mL Dosing Weight 47.727, kg, ONCE, Start date: 10/16/12 13:10:00, Stop date: 10/16/12 13:10:00 acetaminoph 2012- No Gail 500 mg, 1 Memoria en 10-16 [facility] tab, l 18:06: Route: PO, [place] 00 Drug form: TAB, ONCE, Dosing Weight 47.727, kg, Start date: 10/16/12 13:06:00, Stop date: 10/16/12 13:06:00 Pepcid No Gail 20 mg, Memoria 10-16 [facility] Route: IV, l 15:56: ONCE, Dosing Weight 47.727, kg, Start date: 10/16/12 10:56:00, Stop date: 10/16/12 10:56:00 Benadryl No Gail 25 mg, Memor ia 10-16 [facility] Route: l 15:56: IVP, ONCE, Dosing Weight 47.727, kg, Priority: STAT, Start date: 10/16/12 10:56:00, Stop date: 10/16/12 10:56:00 clindamycin No Gail 600 mg, 4 Memoria + Sodium 10-16 [facility] mL, Route: l Chloride 15:53: IVPB, Migel 0.9% IV 100 00 ONCE, mL Dosing Weight 47.727, kg, Priority: STAT, Start date: 10/16/12 10:53:00, Stop date: 10/16/12 10:53:00 FLEXERIL 5 Yes 1 PO qhs Mem oria MG TABS 2-19 l 00:00: Migel 00 Flexeril 5 Yes Prasanth 5 mg, 1 Mem oria mg oral 2-13 Juan Ramon tab, PO, l tablet 00:53: Hill TID, 21 Migel 40 tab, Substituti on Allowed, TAB Tylenol Yes Prasanth 1 - 2 tab, Mem oria with 2-13 Juan Ramon PO, Q4H, l Codeine #3 00:20: Hill PRN, 20 Herm akilah oral tablet 14 tab, Pain, Substituti on Allowed, Maintenanc e Toradol 30 0 No Prasanth 15 mg, Rafal roxanna mg/mL 2- Route: IV, l injectable 20:31: Hill ONCE, Shawn n solution 00 Dosing Weight 47.273, kg, Priority: STAT, Start date: 07/22/12 14:31:00, Stop date: 07/22/12 14:31:00 Saline 2012-0 No Prasanth 5 mL, Memoria Flush 0.9% 07-22 Route: l 18:11: Hill IVP, Drug [place] 00 Form: INJ, Dosing Weight 47.273, kg, PRN, PRN Line Flush, Start date: 07/22/12 12:11:00, Duration: 24 hr, Stop date: 07/23/12 12:10:00 Sodium 2012-0 No Prasanth 500 mL, Memoria Chloride 07-22 Juan Ramon 500 ml/hr, l 0.9% 18:11: Hill Route: IV, [place] (Bolus) IV 00 Drug Form: INJ, Dosing Weight 47.273, kg, ONCE, Bolus at 1,000 ml/hr, STAT, Start date: 07/22/12 12:11:00, Stop date: 07/22/12 12:11:00 GI cocktail 0 No Prasanth 30 ml, Mem oria -12 Juan Ramon Route: PO, l 18:11: Hill Drug Form: Migel 00 SUSP, Dosing Weight 47.273, kg, ONCE, Formulatio n #1: (Maalox 30ml - Viscous Lidocaine 10ml - Elixir 10ml), STAT, Start date: 07/22/12 12:11:00, Stop date: 07/22/12 12:11:00 famotidine 2012-0 No Prasanth 20 mg, 2 Me moria 2-12 Juan Ramon mL, Route: l 18:11: Hill IVP, Drug [place] 00 form: INJ, ONCE, Dosing Weight 47.273, kg, Priority: STAT, Start date: 07/22/12 12:11:00, Stop date: 07/22/12 12:11:00 morphine 2012-0 No Prasanth 2 mg, 1 Memor ia Sulfate -12 Juan Ramon mL, Route: l 18:11: Hill IVP, Drug [place] form: INJ, ONCE, Dosing Weight 47.273, kg, Priority: STAT, Start date: 07/22/12 12:11:00, Stop date: 07/22/12 12:11:00 ondansetron No Prasanth 4 mg, 2 Me moria 2-12 Juan Ramon mL, Route: l 18:11: Hill IVP, Drug [place] form: INJ, ONCE, Dosing Weight 47.273, kg, Priority: STAT, Start date: 07/22/12 12:11:00, Stop date: 07/22/12 12:11:00 FOCALIN XR 0 Yes per other Me moria 35 MG 6-28 M.D. l [id number] 00:00: ALBUTEROL Yes per other Mem oria SULFATE 6-28 M.D. l NEBU 00:00: Migel 00 MOBIC 0 Yes per other Memoria 6-28 M.D. l 00:00: FOCALIN XR 0 Yes per other Me moria 35 MG 6-28 M.D. l [id number] 00:00: Migel 00 ALBUTEROL 0 Yes per other Mem oria SULFATE 6-28 M.D. l NEBU 00:00: MOBIC 0 Yes per other Memoria 6-28 M.D. l 00:00: [place] 00 albuterol No Kaitlynn A 2.49 mg, 3 Memoria 0.083% 6-18 Sony mL, Route: l inhalation 07:00: NEB, Drug He rmann solution 00 form: SOLN, RQ6H, Start date: 11/26/11 2:00:00, Duration: 30 day, Stop date: 12/25/11 20:00:00 albuterol Yes Kaitlynn A 2 puff, Me moria CFC free 90 6-18 Sony INHALATION l mcg/inh 04:01: , Q4H, [place] inhalation 11 PRN, 9 gm, aerosol for with wheezing, adapter Substituti on Allowed, Maintenanc e, use with spacer chamber, AEROuse with spacer chamber [place] 325 No Kaitlynn A 1 tab, M emoria oral tablet 6-18 Sony Route: PO, l 02:44: Drug Form: Migel 00 TAB, ONCE, STAT, Start date: 11/25/11 21:44:00, Stop date: 11/25/11 21:44:00 Symbicort 2011-0 Yes Substituti Me layne 160/4.5 6-18 on l inhalation 02:39: Allowed, Her maldonado aerosol 18 Maintenanc with e adapter predniSONE 2011- Yes Substituti M emoria 20 mg oral 6-18 on Allowed l tablet 02:38: Migel 27 meloxicam 2011- Yes 15 mg, 1 Rafal roxanna 15 mg oral 6-18 tab, PO, l tablet 02:38: Daily, 30 Shawn n 03 tab, Substituti on Allowed, TAB Nexium 2011- Yes Substituti Memor ia 6-18 on Allowed l 02:37: Migel 42 clarithromy 2011- Yes Substituti Memoria jasson 6-18 on Allowed l 02:37: Migel 35 amoxicillin 2011-0 Yes Substituti Memoria 875 mg oral 6-18 on Allowed l tablet 02:37: Migel 28 Immunizations Ordered Immunization Filled Immunization Date Status Commen ts Source Name Name influenza virus 2022-03-23 Completed [facility] vaccine, inactivated 00:00:00 Barb isbell [id number] 2021-05-08 Completed Mem orial A-1273vaxMODERNA 00:00:00 Migel influenza virus 2021-03-13 Completed [facility] vaccine, 20:29:00 Migel inactivated<sup>1</maza p> [id number] 2021-03-08 Completed Mem orial A-1273vaxMODERNA 00:00:00 Migel influenza virus 2018-01-23 Completed [facility] vaccine, inactivated 00:00:00 Barb isbell hepatitis B pediatric 2017-06-24 Completed Mem orial vaccine 00:00:00 Migel meningococcal 2015-11-29 Completed [facility] conjugate 00:00:00 Migel vaccine<sup>1, 2</sup> meningococcal 2015-11-29 Completed [facility] conjugate 00:00:00 Migel vaccine<sup>2, 3</sup> Hx meningococcal 2015-11-29 Completed [facility] vaccine 00:00:00 Migel human papillomavirus 2013-01-09 Completed Rafal rial vaccine<sup>3</sup> 05:00:00 Pastora nn human papillomavirus 2013-01-09 Completed Rafal rial vaccine<sup>4</sup> 05:00:00 Past[place] nn heptavalent 2011-12-11 Completed [facility] pneumococcal 15:02:28 Migel conjugate vaccine (7-valent) #1 heptavalent 2011-12-11 Completed [facility] pneumococcal 15:02:28 Migel conjugate vaccine (7-valent) #2 heptavalent 2011-12-06 Completed [facility] pneumococcal 12:48:50 [place] conjugate vaccine (7-valent) #1 heptavalent 2011-12-06 Completed [facility] pneumococcal 12:48:50 [place] conjugate vaccine (7-valent) #2 human papillomavirus 2011-05-02 Completed Rafal rial vaccine 00:00:00 [place] human papillomavirus 2011-02-09 Completed Rafal rial vaccine 00:00:00 Migel diphtheria/pertussis, 2010-01-06 Completed Mem orial acel/tetanus 19:47:05 [place] adult<sup>4</sup> diphtheria/pertussis, 2010-01-06 Completed Mem orial acel/tetanus 19:47:05 [place] adult<sup>5</sup> meningococcal 2010-01-06 Completed [facility] polysaccharide 19:27:41 Migel vaccine<sup>5</sup> varicella virus 2010-01-06 Completed [facility] vaccine<sup>6</sup> 19:27:41 Past[place] nn Hx hepatitis A 2010-01-06 Completed [facility] vaccine<sup>8</sup> 19:27:41 Pastora nn Hx hepatitis A 2010-01-06 Completed [facility] vaccine<sup>5</sup> 19:27:41 Past[place] nn meningococcal 2010-01-06 Completed [facility] polysaccharide 19:27:41 Migel vaccine<sup>7</sup> varicella virus 2010-01-06 Completed [facility] vaccine<sup>8</sup> 19:27:41 Pastora nn varicella virus 2010-01-06 Completed [facility] vaccine<sup>5</sup> 19:27:41 Pastora nn Hx hepatitis A 2010-01-06 Completed [facility] vaccine<sup>7</sup> 19:27:41 Past[place] nn meningococcal 2010-01-06 Completed [facility] polysaccharide 19:27:41 Migel vaccine<sup>9</sup> Hx hepatitis A 2010-01-06 Completed [facility] vaccine<sup>6</sup> 19:27:41 Pastora nn meningococcal 2010-01-06 Completed [facility] polysaccharide 19:27:41 Migel vaccine<sup>8</sup> varicella virus 2010-01-06 Completed [facility] vaccine<sup>9</sup> 19:27:41 Pastora nn Hx hepatitis A 2008-01-28 Completed [facility] vaccine<sup>9</sup> 19:27:41 Pastora nn Hx hepatitis A 2008-01-28 Completed [facility] vaccine<sup>6</sup> 19:27:41 Pastora nn Hx hepatitis A 2008-01-28 Completed [facility] vaccine<sup>8</sup> 19:27:41 Past[place] nn Hx hepatitis A 2008-01-28 Completed [facility] vaccine<sup>7</sup> 19:27:41 Pastora nn measles/mumps/rubella 2002-01-29 Completed Mem orial virus 19:27:41 [place] vaccine<sup>10</sup> Hx diphth/pertussis, 2002-01-29 Completed Rafal rial acellular/tetanus<sup 19:27:41 Her maldonado >12</sup> Hx diphth/pertussis, 2002-01-29 Completed Rafal rial acellular/tetanus<sup 19:27:41 Her maldonado >10</sup> measles/mumps/rubella 2002-01-29 Completed Mem orial virus 19:27:41 [place] vaccine<sup>15</sup> measles/mumps/rubella 2002-01-29 Completed Mem orial virus 19:27:41 [place] vaccine<sup>11</sup> Hx diphth/pertussis, 2002-01-29 Completed Rafal rial acellular/tetanus<sup 19:27:41 Her maldonado >13</sup> poliovirus vaccine, 2002-01-29 Completed Memor ial inactivated 00:00:00 [place] Hx haemophilus b 1999-06-29 Completed [facility] vaccine<sup>17</sup> 20:27:41 Herm akilah Hx diphth/pertussis, 1999-06-29 Completed Rafal rial acellular/tetanus<sup 20:27:41 Her maldonado >13</sup> Hx diphth/pertussis, 1999-06-29 Completed Rafal rial acellular/tetanus<sup 20:27:41 Her maldonado >11</sup> Hx haemophilus b 1999-06-29 Completed [facility] vaccine<sup>18</sup> 20:27:41 Herm akilah Hx diphth/pertussis, 1999-06-29 Completed Rafal rial acellular/tetanus<sup 20:27:41 Her maldonado >14</sup> poliovirus vaccine, 1999-06-29 Completed Memor ial inactivated 00:00:00 Migel varicella virus 1999-01-03 Completed [facility] vaccine<sup>7</sup> 19:27:41 Past[place] nn Hx hepatitis B 1999-01-03 Completed [facility] vaccine<sup>21</sup> 19:27:41 Herm akilah measles/mumps/rubella 1999-01-03 Completed Mem orial virus 19:27:41 Migel vaccine<sup>11</sup> varicella virus 1999-01-03 Completed [facility] vaccine<sup>9</sup> 19:27:41 [place] nn varicella virus 1999-01-03 Completed [facility] vaccine<sup>6</sup> 19:27:41 Past[place] nn measles/mumps/rubella 1999-01-03 Completed Mem orial virus 19:27:41 Migel vaccine<sup>16</sup> Hx hepatitis B 1999-01-03 Completed [facility] vaccine<sup>22</sup> 19:27:41 Herm akilah varicella virus 1999-01-03 Completed [facility] vaccine<sup>10</sup> 19:27:41 Herm akilah measles/mumps/rubella 1999-01-03 Completed Mem orial virus 19:27:41 Migel vaccine<sup>12</sup> Hx haemophilus b 1998-06-24 Completed [facility] vaccine<sup>18</sup> 20:27:41 Herm akilah Hx diphth/pertussis, 1998-06-24 Completed Rafal rial acellular/tetanus<sup 20:27:41 Her maldonado >14</sup> Hx diphth/pertussis, 1998-06-24 Completed Rafal rial acellular/tetanus<sup 20:27:41 Her maldonado >12</sup> Hx haemophilus b 1998-06-24 Completed [facility] vaccine<sup>19</sup> 20:27:41 Herm akilah Hx diphth/pertussis, 1998-06-24 Completed Rafal rial acellular/tetanus<sup 20:27:41 Her maldonado >15</sup> Hx haemophilus b 1998-04-22 Completed [facility] vaccine<sup>19</sup> 20:27:41 Herm akilah Hx diphth/pertussis, 1998-04-22 Completed Rafal rial acellular/tetanus<sup 20:27:41 Her maldonado >15</sup> Hx diphth/pertussis, 1998-04-22 Completed Rafal rial acellular/tetanus<sup 20:27:41 Her maldonado >13</sup> Hx haemophilus b 1998-04-22 Completed [facility] vaccine<sup>20</sup> 20:27:41 Herm akilah Hx diphth/pertussis, 1998-04-22 Completed Rafal rial acellular/tetanus<sup 20:27:41 Her maldonado >16</sup> poliovirus vaccine, 1998-04-22 Completed Memor ial inactivated 00:00:00 [place] Hx haemophilus b 1998-02-25 Completed [facility] vaccine<sup>20</sup> 19:27:41 Herm akilah Hx diphth/pertussis, 1998-02-25 Completed Rafal rial acellular/tetanus<sup 19:27:41 Her maldonado >16</sup> Hx diphth/pertussis, 1998-02-25 Completed Rafal rial acellular/tetanus<sup 19:27:41 Her maldonado >14</sup> Hx haemophilus b 1998-02-25 Completed [facility] vaccine<sup>21</sup> 19:27:41 Herm akilah Hx diphth/pertussis, 1998-02-25 Completed Rafal rial acellular/tetanus<sup 19:27:41 Her maldonado >17</sup> poliovirus vaccine, 1998-02-25 Completed Memor ial inactivated 00:00:00 Migel Hx hepatitis B 1998-02-07 Completed [facility] vaccine<sup>22</sup> 19:27:41 Herm akilah Hx hepatitis B 1998-02-07 Completed [facility] vaccine<sup>23</sup> 19:27:41 Herm akilah Hx hepatitis B 1998-01-12 Completed [facility] vaccine<sup>23</sup> 19:27:41 Herm akilah Hx hepatitis B 1998-01-12 Completed [facility] vaccine<sup>24</sup> 19:27:41 Herm akilah Hx hepatitis B 1997 Completed [facility] vaccine<sup>24</sup> 19:27:41 Herm akilah Hx hepatitis B 1997 Completed [facility] vaccine<sup>25</sup> 19:27:41 Herm akilah Vital Signs Vital Name Observation Time Observation Value Comments Source Height 2019-07-15 12:53:00 167.64 CM Weight 2019-07-15 12:53:00 74.84 KG Height 2022-04-13 18:37:00 5 [ft_i] [facility] Heart Rate 2022-04-13 18:37:00 [facility] [place] Systolic (mm Hg) 2022-04-13 18:37:00 Rafal rial Migel Diastolic (mm Hg) 2022-04-13 18:37:00 Mem orial [place] Weight 2022-04-13 18:37:00 [facility] [place] BMI Calculated 2022-04-13 18:37:00 Mem[facility] al Migel Systolic (mm Hg) 2022-01-08 21:03:00 Rafal rial Migel Diastolic (mm Hg) 2022-01-08 21:03:00 Mem orial [place] Heart Rate 2022-01-08 21:03:00 [facility] [place] Temperature Oral (F) 2022-01-08 21:03:00 98.3 F [facility] [place] Respitory Rate 2022-01-08 21:03:00 Mem[facility] al Migel Temperature Oral (F) 2022-01-08 20:12:00 98.2 F [facility] Systolic (mm Hg) 2022-01-08 20:12:00 Rafal rial [place] Diastolic (mm Hg) 2022-01-08 20:12:00 Mem orial Migel Respitory Rate 2022-01-08 20:12:00 Memori al [place] Heart Rate 2022-01-08 20:12:00 [facility] [place] Height 2022-01-08 19:13:00 172.72 cm [facility] BMI Calculated 2022-01-08 19:13:00 [facility] al [facility] Weight 2022-01-08 19:13:00 [facility] [place] Weight 2022-01-08 16:17:00 [facility] Systolic (mm Hg) 2022-01-08 16:17:00 Rafal rial [place] Diastolic (mm Hg) 2022-01-08 16:17:00 Mem orial [place] Heart Rate 2022-01-08 16:17:00 [facility] Respitory Rate 2022-01-08 16:17:00 Memori al [place] Temperature Oral (F) 2022-01-08 16:17:00 98.5 F [facility] Weight 2021-10-19 16:02:00 [facility] Height 2021-03-28 21:34:00 172.72 cm [facility] Temperature Oral (F) 2021-03-28 21:34:00 97.7 F [facility] [place] Weight 2021-03-28 21:34:00 [facility] BMI Calculated 2021-03-28 21:34:00 [facility] al [place] Systolic (mm Hg) 2021-03-28 21:34:00 Rafal rial [place] Diastolic (mm Hg) 2021-03-28 21:34:00 Mem orial [place] Heart Rate 2021-03-28 21:34:00 [facility] [place] Systolic (mm Hg) 2021-03-13 19:25:00 Rafal rial Migel Diastolic (mm Hg) 2021-03-13 19:25:00 [facility] o[facility] [place] Heart Rate 2021-03-13 19:25:00 [facility] [place] Temperature Oral (F) 2021-03-13 19:25:00 98.2 F [facility] [place] Height 2021-03-13 19:25:00 172.72 cm [facility] Weight 2021-03-13 19:25:00 [facility] BMI Calculated 2021-03-13 19:25:00 [facility] al [place] Temperature Oral (F) 2020-05-07 10:35:00 98.6 F [facility] Heart Rate 2020-05-07 10:35:00 [facility] [place] Respitory Rate 2020-05-07 10:35:00 Mem[facility] al [place] Systolic (mm Hg) 2020-05-07 10:35:00 Rafal rial Migel Diastolic (mm Hg) 2020-05-07 10:35:00 Mem orial [place] Height 2020-05-07 08:53:00 172.72 cm [facility] BMI Calculated 2020-05-07 08:53:00 Memori al [place] Weight 2020-05-07 08:53:00 [facility] [place] Systolic (mm Hg) 2020-05-07 08:53:00 Rafal rial Migel Diastolic (mm Hg) 2020-05-07 08:53:00 [facility] o[facility] [place] Heart Rate 2020-05-07 08:53:00 [facility] [place] Respitory Rate 2020-05-07 08:53:00 Memori al [place] Temperature Oral (F) 2020-05-07 08:53:00 98.4 F [facility] [place] Temperature Oral (F) 2019-12-05 21:40:00 98.8 F [facility] [place] Heart Rate 2019-12-05 21:40:00 [facility] Respitory Rate 2019-12-05 21:40:00 [facility] al [place] Systolic (mm Hg) 2019-12-05 21:40:00 Rafal rial [place] Diastolic (mm Hg) 2019-12-05 21:40:00 [facility] o[facility] Migel Temperature Oral (F) 2019-12-05 17:29:00 97.8 F [facility] [place] Heart Rate 2019-12-05 17:29:00 [facility] Respitory Rate 2019-12-05 17:29:00 Memori al [place] Systolic (mm Hg) 2019-12-05 17:29:00 Rafal rial [place] Diastolic (mm Hg) 2019-12-05 17:29:00 [facility] o[facility] Migel Temperature Oral (F) 2019-12-05 13:45:00 98.0 F [facility] Systolic (mm Hg) 2019-12-05 13:45:00 Rafal rial Migel Diastolic (mm Hg) 2019-12-05 13:45:00 Mem o[facility] [place] Heart Rate 2019-12-05 13:45:00 [facility] Respitory Rate 2019-12-05 13:45:00 [facility] al [facility] Height 2019-12-05 05:45:00 172.72 cm [facility] [place] Weight 2019-12-05 05:45:00 [facility] [place] BMI Calculated 2019-12-05 05:45:00 Mem[facility] al [place] BMI Calculated 2019-12-05 03:20:00 Memori al [place] BMI Calculated 2019-12-04 23:56:00 [facility] Height 2019-12-04 21:53:00 172.72 cm [facility] [place] Weight 2019-12-04 21:53:00 [facility] Heart Rate 2014-09-15 08:16:00 [facility] Respitory Rate 2014-09-15 08:16:00 Mem[facility] al [place] Temperature Oral (F) 2014-09-15 08:16:00 98.0 F [facility] [place] Systolic (mm Hg) 2014-09-15 08:16:00 Rafal rial [place] Diastolic (mm Hg) 2014-09-15 08:16:00 Mem o[facility] [place]el Systolic (mm Hg) 2014-09-15 04:50:00 Rafal rial [place] Diastolic (mm Hg) 2014-09-15 04:50:00 [facility] o[facility] [place] Weight 2014-09-15 04:50:00 [facility] Respitory Rate 2014-09-15 04:50:00 Memori al [place] Heart Rate 2014-09-15 04:50:00 [facility] [place] Weight 2012-10-24 21:43:00 [facility] Systolic (mm Hg) 2012-10-18 17:00:00 Rafal rial [place] Temperature Oral (F) 2012-10-18 17:00:00 99.3 F [facility] [place] Respitory Rate 2012-10-18 17:00:00 Memori al [place] Heart Rate 2012-10-18 17:00:00 [facility] [place] Diastolic (mm Hg) 2012-10-18 17:00:00 Mem o[facility] Migel Diastolic (mm Hg) 2012-10-18 13:03:00 [facility] [place] Systolic (mm Hg) 2012-10-18 13:03:00 Rafal rial Migel Respitory Rate 2012-10-18 13:03:00 [facility] Heart Rate 2012-10-18 13:03:00 [facility] Temperature Oral (F) 2012-10-18 13:03:00 97.6 F [facility] [place] Systolic (mm Hg) 2012-10-18 09:00:00 Rafal rial Migel Respitory Rate 2012-10-18 09:00:00 [facility] al [facility] Heart Rate 2012-10-18 09:00:00 [facility] [place] Diastolic (mm Hg) 2012-10-18 09:00:00 [facility] Migel Temperature Oral (F) 2012-10-18 06:29:00 97.6 F [facility] [place] Weight 2012-10-17 00:06:00 [facility] [place] Height 2012-10-17 00:06:00 162 cm [facility] Height 2012-10-16 20:13:00 162.56 cm [facility] Weight 2012-10-16 20:13:00 [facility] Height 2012-10-16 15:05:00 162.56 cm [facility] Weight 2012-10-16 15:05:00 [facility] Weight 2012-07-22 17:53:00 [facility] [place] Height 2012-07-22 17:53:00 162.56 cm [facility] [place] Height 2011-12-06 12:48:50 [facility] [place] Weight 2011-12-06 12:48:50 [facility] Heart Rate 2011-12-06 12:48:50 [facility] [place] Systolic (mm Hg) 2011-12-06 12:48:50 Rafal rial [place] Diastolic (mm Hg) 2011-12-06 12:48:50 Mem o[facility] [place] Procedures Procedure Date / Time Performed Performing Clinician Sourc e genitourinary review of 2011-12-06 01:20:52 Rafal rial Migel systems, E&M Miscellaneous operations [facility] <sup>1</sup> Miscellaneous [facility] [place] operations<sup>1</sup> Encounters Start End Encounter Admission Attending Care Care Encounter Source Date/Time Date/Time Type Type Clinicians Facility Department ID 2022-05-17 2022-05-19 Phone AGUSTIN [facility] [id number] [facility] 21:57:06 05:59:59 Message Primary 09 l Care Sugar Pastora [facility] 2022-05-17 2022-05-18 Outpatient [facility] [id number] 15:57:06 23:59:59 09 2022-04-13 2022-04-14 Outpatient nullFlavo [facility] [id number] Memoria 19:00:00 04:59:59 r Primary 15 l Care Sugar Pastora [facility] 2022-04-13 2022-04-13 Outpatient Chitra [facility] [id number] 14:00:00 23:59:59 Kaitlynn 15 Guitar 2022-04-13 2022-04-13 Outpatient [facility] [id number] Memoria 14:00:00 14:00:00 15 l [place] 2022-04-03 2022-04-05 Phone nullFlavo [facility] [id number] Memoria 18:37:16 04:59:59 Message r Primary 08 l Care Sugar Pastora [facility] 2022-04-03 2022-04-04 Outpatient [facility] [id number] 13:37:16 23:59:59 08 2022-02-20 2022-02-20 Ambulatory nullFlavo [facility] [id number] Mem[facility] 21:20:00 21:20:00 Pre-Reg r Primary 14 l Care Sugar Pastora [facility] 2022-02-20 2022-02-20 Outpatient MHIE JENNIFERIE [id number] [facility] 16:20:00 16:20:00 14 l [place] 2022-02-20 2022-02-20 Outpatient Chitra, [facility] [id number] 16:20:00 16:20:00 Kaitlynn Mike Karencallie 2022-02-17 2022-02-19 Phone nullFlavo [facility] [id number] Memoria 14:22:12 04:59:59 Message r Primary 07 l Care Sugar Pastora [facility] 2022-02-17 2022-02-18 Outpatient [facility] [id number] 09:22:12 23:59:59 07 2022-01-08 2022-01-[address] [facility] [id number] Memoria 16:13:29 21:21:00 r [place] 10 l [place] Pastora 2022-01-08 2022-01-08 Outpatient Broderick, [facility] [id number] 11:13:29 16:21:00 [place] 2022-01-08 2022-01-08 Emergency E BRODERICK, MHFB [facility] [id number] MHFB 11:13:00 16:21:00 [place] 2022-01-02 2022-01-04 Phone nullFlavo [facility] [id number] Memoria 19:29:40 04:59:59 Message r Primary 06 l Care [place] [facility] 2022-01-02 2022-01-03 Outpatient [facility] [id number] 14:29:40 23:59:59 06 2021-12-01 2021-12-01 Outpatient IE IE [id number] Memoria 16:40:00 16:40:00 13 l Migel 2021-10-19 2021-10-20 Outpatient nullFlavo [facility] [id number] Memoria 16:20:00 04:59:59 r Primary 12 l Care [place] [facility] 2021-10-19 2021-10-19 Outpatient Chitra, MG [facility] [id number] 11:20:00 23:59:59 Kaitlynn 12 Karencallie 2021-10-19 2021-10-19 Outpatient MHIE IE [id number] Memoria 11:20:00 11:20:00 12 herb Lainez 2021-06-23 2021-06-25 Phone nullFlavo [facility] [id number] Memoria 21:55:17 05:59:59 Message r Primary 05 l Care [place] [facility] [facility] 2021-06-23 2021-06-24 Outpatient MG [facility] [id number] 15:55:17 23:59:59 05 2021-05-09 2021-05-09 Ambulatory nullFlavo [facility] [id number] Memoria 21:20:00 21:20:00 Pre-Reg r Primary 10 l Care Sugar [place] [facility] 2021-05-09 2021-05-09 Outpatient MHIE IE [id number] Memoria 15:20:00 15:20:00 10 herb Lainez 2021-05-09 2021-05-09 Outpatient MHIE IE [id number] Memoria 15:20:00 15:20:00 11 herb Lainez 2021-05-09 2021-05-09 Outpatient Chitra, [facility] [id number] 15:20:00 15:20:00 Kaitlynn Linda [facility] 2021-04-25 2021-04-27 Phone nullFlavo [facility] [id number] Memoria 21:06:15 05:59:59 Message r Primary 04 l Care [place] [facility] 2021-04-25 2021-04-26 Outpatient MG MG [id number] 15:06:15 23:59:59 04 2021-03-28 2021-03-29 Outpatient nullFlavo [facility] [id number] Memoria 21:40:00 04:59:59 r Primary 09 l Care [place] [facility] 2021-03-28 2021-03-28 Outpatient Chitra, [facility] [id number] 16:40:00 23:59:59 Kaitlynn Jony Jonesr 2021-03-28 2021-03-28 Outpatient IE IE [id number] Memoria 16:40:00 16:40:00 09 herb Lainez 2021-03-13 2021-03-14 Outpatient nullFlavo [facility] [id number] Memoria 20:00:00 04:59:59 r Primary 07 l Care Sugar [place] nn [facility] 2021-03-13 2021-03-13 Outpatient Chitra, [facility] [id number] 15:00:00 23:59:59 Kaitlynn Emigdio Jonesr 2021-03-13 2021-03-13 Outpatient IE IE [id number] Memoria 15:00:00 15:00:00 07 [facility] 2021-03-03 2021-03-03 Ambulatory nullFlavo [facility] [id number] Memoria 20:30:00 20:30:00 Pre-Reg r Care 08 l [facility] 2021-03-03 2021-03-03 Outpatient IE IE [id number] Memoria 15:30:00 15:30:00 08 [facility] 2021-03-03 2021-03-03 Outpatient Serg [facility] [id number] 15:30:00 15:30:00 [facility]lecio 08 [facility] 2020-05-07 2020-05-07 Emergency nullFlavo [facility] [id number] Memoria 08:37:36 10:37:[address] [facility] 2020-05-07 2020-05-07 Outpatient Yuniormarioruby, [place] [id number] 02:37:36 04:37:00 Laly Jony Monterroso 2019-12-04 2019-12-[address] [facility] [id number] Memoria 21:48:48 22:13:00 n r Migel 08 l [place] 2019-12-04 2019-12-05 Outpatient CRISTIANA WILLS [facility] [id number] [facility] 22:02:00 17:13:00 NOHA 2019-12-04 2019-12-05 Outpatient YADY Jeffers [facility] [id number] 16:48:48 17:13:00 Noha 08 2019-11-25 2019-11-25 Outpatient AKHIL Rivera [id number] [facility] 09:32:00 09:32:[address] [facility] 2019-09-29 2019-09-29 Outpatient AKHIL Rivera [id number] [facility] 14:17:00 14:17:[address] [facility] 2019-07-15 2019-07-15 Outpatient E BA, EMERITA [facility] [id number] [facility] 12:43:00 14:15:00 [facility] 2018-08-29 2018-08-29 Outpatient AKHIL Rivera [id number] [facility] 13:14:00 13:14:[address] [facility] 2017-08-09 2017-08-09 Outpatient AKHIL Rivera [id number] [facility] 13:06:00 13:06:[address] [facility] 2017-08-06 2017-08-06 Ambulatory nullFlavo [facility] [employer] 4 [id number] Memoria 15:00:00 15:00:00 Pre-Reg r [place] 05 herb Migel 2017-08-06 2017-08-06 Outpatient MHIE MHIE [id number] Memoria 09:00:00 09:00:00 05 herb Lainez 2017-08-06 2017-08-06 Outpatient Abigail [facility] MG [id number] 09:00:00 09:00:00 , 05 Kenny Wren 2017-08-06 2017-08-06 Outpatient Abigail [facility] MG [id number] 09:00:00 09:00:00 , 05 Kenny B 2017-05-06 2017-05-06 Ambulatory nullFlavo [facility] Family 4 [id number] Memoria 22:30:00 22:30:00 Pre-Reg r Medicine 06 l Ron Migel 2017-05-06 2017-05-06 Outpatient MHIE MHIE [id number] Memoria 16:30:00 16:30:00 06 herb Lainez 2017-05-06 2017-05-06 Outpatient [place], [facility] [id number] 16:30:00 16:30:00 Henryrone 06 2016-08-02 2016-08-02 Outpatient MHIE MHIE [id number] Memoria 09:30:00 09:30:00 04 herb Lainez 2015-07-07 2015-07-07 Outpatient MHIE MHIE [id number] Memoria 09:45:00 09:45:00 03 herb Lainez 2015-04-28 2015-04-28 Outpatient MHIE MHIE [id number] Memoria 16:00:00 16:00:00 00 herb Lainez 2015-04-01 2015-04-01 Outpatient MHIE MHIE [id number] Memoria 08:30:00 08:30:00 02 herb Lainez 2015-03-21 2015-03-21 Outpatient MHIE MHIE [id number] Memoria 11:15:00 11:15:00 01 herb Lainez 2014-09-15 2014-09-[address] [facility] [id number] Memoria 04:31:00 08:19:00 Emergency r [place] 05 [facility] 2014-09-14 2014-09-15 Outpatient Smart, [id number] 23:31:00 03:19:00 Tae Alvarado [id number] 2012-10-24 Emergency nullFlavo [id number] Memoria 16:36:00 20:40:00 r Lanny 04 herb Lainez 2012-10-17 2012-10-18 Inpatient nullFlavo [facility] [id number] Memoria 11:20:00 14:50:00 r Medical 29 l [facility] 2012-10-16 2012-10-16 Emergency nullFlavo [id number] Memoria 10:03:00 14:40:00 r [place] 03 herb Lainez 2012-07-29 2012-07-29 Office nullFlavo [place] [id number] Memoria 00:00:00 00:00:00 Visit r Office [id number] herb Lainez 2012-07-22 2012-07-22 Emergency nullFlavo [id number] Memoria 11:35:00 19:35:00 r Sugarjovan 02 herb Lainez 2011-12-11 2011-12-11 Office nullFlavo [place] [id number] Memoria 00:00:00 00:00:00 Visit r Office [id number] herb [place] 2011-12-06 2011-12-06 Office nullFlavo Carney [id number] Memoria 00:00:00 00:00:00 Visit r Office [id number] herb [place] 2011-11-25 2011-11-25 Emergency nullFlavo [id number] Memoria 21:07:00 23:11:[facility] Migel Results Test Description Test Time Test Comments Results Result Comments Source CHEM PANEL 2022-01-08 19:01:00 Test Item Value Reference Range Interpretation Comme nts Glucose Lvl (test code = Glucose Lvl) 98 70-99 [facility] [id number] 19:01:00 Test Item Value Reference Range Interpretation Comments BUN (test code = BUN) 12 - [facility] [id number] 19:01:00 Test Item Value Reference Range Interpretation Comments Creatinine Lvl (test code = Creatinine 0.81 0.50-1.40 Lvl) [facility] Klip [id number] 19:01:00 Test Item Value Reference Range Interpretation Comments Sodium Lvl (test code = Sodium Lvl) 138 135-145 [facility] Klip [id number] 19:01:00 Test Item Value Reference Range Interpretation Comments Potassium Lvl (test code = Potassium 3.9 3.5-5.1 Lvl) [facility] Klip [id number] 19:01:00 Test Item Value Reference Range Interpretation Comments Chloride Lvl (test code = Chloride Lvl) 106 95-109 [facility] [id number] 19:01:00 Test Item Value Reference Range Interpretation Comments CO2 (test code = CO2) 29 24-32 [facility] Klip [id number] 19:01:00 Test Item Value Reference Range Interpretation Comments Calcium Lvl (test code = Calcium Lvl) 9.1 8.5-10.5 [facility] [id number] 19:01:00 Test Item Value Reference Range Interpretation Comments Total Protein (test code = Total 7.9 6.4-8.4 Protein) [facility] [id number] 19:01:00 Test Item Value Reference Range Interpretation Comments Albumin Lvl (test code = Albumin Lvl) 3.9 3.5-5.0 [facility]2022-08-01 19:01:00 Test Item Value Reference Range Interpretation Comments ALT (test code = ALT) 15 See_Comment [Auto mated message] The system which ge nerated this result transmit digna reference range : <=65. The reference range was not used to interpr et this result as radha l/abnormal. [facility]2022-08-01 19:01:00 Test Item Value Reference Range Interpretation Comments AST (test code = AST) 16 See_Comment [Auto mated message] The system which ge nerated this result transmit digna reference range : <=37. The reference range was not used to interpr et this result as radha l/abnormal. [facility]2022-08-01 19:01:00 Test Item Value Reference Range Interpretation Comments Alk Phos (test code = Alk Phos) 35 39-136 [facility]2022-08-01 19:01:00 Test Item Value Reference Range Interpretation Comments Bili Total (test code = Bili Total) 0.6 0.2-1.3 [place] [id number] 19:01:00 Test Item Value Reference Range Interpretation Comments AGAP (test code = AGAP) 6.9 10.0-20.0 [facility]2022-08-01 19:01:00 Test Item Value Reference Range Interpretation Comments B/C Ratio (test code = B/C Ratio) 15 1 6-25 [place] [id number] 19:01:00 Test Item Value Reference Range Interpretation Comments Globulin (test code = Globulin) 4.0 2.7-4.2 [place] [id number] 19:01:00 Test Item Value Reference Range Interpretation Comments A/G Ratio (test code = A/G Ratio) 1.0 1 0.7-1.6 [place] 974122-08-01 19:01:00 Test Item Value Reference Range Interpretation Comments eGFR (test code = eGFR) 105 [place] 974122-08-01 19:01:00 Test Item Value Reference Range Interpretation Comments Lipase Lvl (test code = Lipase Lvl) 99 73-393 [place] 518492-08-01 19:01:00 Test Item Value Reference Range Interpretation Comments WBC (test code = WBC) 6.6 3.7-10.4 [facility]yfiataOTKPSDGUFL3083-78-04 19:01:00 Test Item Value Reference Range Interpretation Comments RBC (test code = RBC) 4.77 4.20-5.40 [facility] SystemCfsycrwKMAIJCXEEU8444-41-82 19:01:00 Test Item Value Reference Range Interpretation Comments Hgb (test code = Hgb) 13.9 12.0-16.0 [facility] SystemGyrkeklCPXFUIXTUE3774-81-12 19:01:00 Test Item Value Reference Range Interpretation Comments Hct (test code = Hct) 42.0 36.0-48.0 [facility] [id number] 19:01:00 Test Item Value Reference Range Interpretation Comments MCV (test code = MCV) 88.0 80.0-98.0 [facility] SystemIwimfhlSWPFRSTSIP2186-84-87 19:01:00 Test Item Value Reference Range Interpretation Comments MCH (test code = MCH) 29.1 pg 27.0-31.0 [facility] SystemRatszhrARCNEZNGFF1742-91-50 19:01:00 Test Item Value Reference Range Interpretation Comments MCHC (test code = MCHC) 33.0 32.0-36.0 [facility] SystemHyafmvkDFHZJUWAPZ3432-47-94 19:01:00 Test Item Value Reference Range Interpretation Comments RDW (test code = RDW) 12.3 11.5-14.5 [facility] SystemPnbdqmhCHGMJSHUKE5170-49-07 19:01:00 Test Item Value Reference Range Interpretation Comments Platelet (test code = Platelet) 261 133-450 [facility] SystemPbhdvbpKLJMMTUVWN9022-74-68 19:01:00 Test Item Value Reference Range Interpretation Comments MPV (test code = MPV) 7.6 7.4-10.4 [place] 518492-08-01 19:01:00 Test Item Value Reference Range Interpretation Comments Segs (test code = Segs) 61.0 45.0-75.0 [place] 518492-08-01 19:01:00 Test Item Value Reference Range Interpretation Comments Lymphocytes (test code = Lymphocytes) 31.1 20.0-40.0 [facility] SystemXwiclniYNFHWUKJYH0375-99-30 19:01:00 Test Item Value Reference Range Interpretation Comments Monocytes (test code = Monocytes) 5.1 2.0-12.0 [place] 518492-08-01 19:01:00 Test Item Value Reference Range Interpretation Comments Eosinophils (test code = 2.0 See_Comment [A utomated message] The Eosinophils) system which ge nerated this result tra nsmitted reference range : <=4.0. The reference r erica was not used to int erpret this result as normal/abnormal . [place] 88[address]-08-01 19:01:00 Test Item Value Reference Range Interpretation Comments Basophils (test code = 0.8 See_Comment [Aut omated message] The Basophils) system which ge nerated this result tra nsmitted reference range : <=1.0. The reference r erica was not used to int erpret this result as normal/abnormal . [place] 518492-08-01 19:01:00 Test Item Value Reference Range Interpretation Comments Neutrophils # (test code = Neutrophils 4.0 1.5-8.1 #) [place] 518492-08-01 19:01:00 Test Item Value Reference Range Interpretation Comments Lymphocytes # (test code = Lymphocytes 2.0 1.0-5.5 #) [place] 518492-08-01 19:01:00 Test Item Value Reference Range Interpretation Comments Monocytes # (test code 0.3 See_Comment [Aut omated message] The = Monocytes #) system which generated this result tra nsmitted reference range : <=0.8. The reference r erica was not used to int erpret this result as normal/abnormal . [facility] SystemQnxkfmuPTTPTMKQWX3589-18-69 19:01:00 Test Item Value Reference Range Interpretation Comments Eosinophils # (test code 0.1 See_Comment [A utomated message] The = Eosinophils #) system whic h generated this result tra nsmitted reference range : <=0.5. The reference r erica was not used to int erpret this result as normal/abnormal . [place] 518492-08-01 19:01:00 Test Item Value Reference Range Interpretation Comments Basophils # (test code 0.1 See_Comment [Aut omated message] The = Basophils #) system which generated this result tra nsmitted reference range : <=0.2. The reference r erica was not used to int erpret this result as normal/abnormal . [facility] AND [id number] 19:01:00 Test Item Value Reference Range Interpretation Comments UA Color (test code = Yellow *NA*(01/08/22 2:01 UA Color) PM) [facility] AND [id number] 19:01:00 Test Item Value Reference Range Interpretation Comments UA Turbidity (test code = Clear (01/08/22 2:01 UA Turbidity) PM) [facility] AND [id number] 19:01:00 Test Item Value Reference Range Interpretation Comments UA Spec Grav (test code = UA Spec 1.010 1 Grav) [facility] AND [id number] 19:01:00 Test Item Value Reference Range Interpretation Comments UA pH (test code = UA pH) 7.0 1 5.0-8.0 [facility] AND [id number] 19:01:00 Test Item Value Reference Range Interpretation Comments UA Protein (test code = UA Negative mg/dL Protein) [facility] AND [id number] 19:01:00 Test Item Value Reference Range Interpretation Comments UA Glucose (test code = UA Negative mg/dL Glucose) [facility] AND [id number] 19:01:00 Test Item Value Reference Range Interpretation Comments UA Ketones (test code = UA Negative mg/dL Ketones) [facility] AND [id number] 19:01:00 Test Item Value Reference Range Interpretation Comments UA Bili (test code = Negative *NA*(01/08/22 UA Bili) 2:01 PM) [facility] AND [id number] 19:01:00 Test Item Value Reference Range Interpretation Comments UA Blood (test code = Negative (01/08/22 2:01 UA Blood) PM) [facility] AND [id number] 19:01:00 Test Item Value Reference Range Interpretation Comments UA Urobilinogen (test code = UA 0.2 0.1-1.0 Urobilinogen) [facility] AND [id number] 19:01:00 Test Item Value Reference Range Interpretation Comments UA Nitrite (test code Negative (01/08/22 2:01 = UA Nitrite) PM) [facility] [id number] 19:01:00 Test Item Value Reference Range Interpretation Comments UA Leuk Est (test Negative (01/08/22 2:01 code = UA Leuk Est) PM) [facility] [id number] 19:01:00 Test Item Value Reference Range Interpretation Comments UA Sq Epi (test code = UA Sq Occasional /LPF Epi) [facility] [id number] 19:01:00 Test Item Value Reference Range Interpretation Comments UA WBC (test code = 1 See_Comment [Automa digna message] The UA WBC) system which ge nerated this result transmit digna reference range : <=5. The reference range was not used to interpr et this result as radha l/abnormal. [facility] [id number] 19:01:00 Test Item Value Reference Range Interpretation Comments UA RBC (test code = 2 See_Comment [Automa digna message] The UA RBC) system which ge nerated this result transmit digna reference range : <=2. The reference range was not used to interpr et this result as radha l/abnormal. [facility] [id number] 19:01:00 Test Item Value Reference Range Interpretation Comments UA Bacteria (test code = UA Occasional /HPF Bacteria) [facility] [id number] 19:01:00 Test Item Value Reference Range Interpretation Comments UA Mucus (test code = UA Mucus) Few /LPF [facility] [id number] 19:01:00 Test Item Value Reference Range Interpretation Comments U Preg (test code = U Negative (01/08/22 2:01 Preg) PM) [facility] [id number] 16:09:00 Test Item Value Reference Range Interpretation Comments U Amph Scr (test code Negative *NA*(12/05/19 = U Amph Scr) 11:09 AM) [facility] [id number] 16:09:00 Test Item Value Reference Range Interpretation Comments U Jennifer Scr (test code Negative *NA*(12/05/19 = U Jennifer Scr) 11:09 AM) [facility] [id number] 16:09:00 Test Item Value Reference Range Interpretation Comments U Benzodiaz Scr (test Negative *NA*(12/05/19 code = U Benzodiaz Scr) 11:09 AM) [facility] [id number] 16:09:00 Test Item Value Reference Range Interpretation Comments U Cocaine Scr (test Negative *NA*(12/05/19 code = U Cocaine Scr) 11:09 AM) [facility] [id number] 16:09:00 Test Item Value Reference Range Interpretation Comments U Cannab Scr (test Negative *NA*(12/05/19 code = U Cannab Scr) 11:09 AM) [facility] [id number] 16:09:00 Test Item Value Reference Range Interpretation Comments U Opiate Scr (test Positive *ABN*(12/05/19 code = U Opiate Scr) 11:09 AM) [facility] [id number] 16:09:00 Test Item Value Reference Range Interpretation Comments U Phencyclidine Scr (test Negative code = U Phencyclidine *NA*(12/05/19 11:09 Scr) AM) [facility] [id number] 16:09:00 Test Item Value Reference Range Interpretation Comments UDS Note (test code = See Note (12/05/19 11:09 UDS Note) AM) [facility] [id number] 10:15:00 Test Item Value Reference Range Interpretation Comments Total CK (test code = Total CK) 249 12-191 [facility] [id number] 10:15:00 Test Item Value Reference Range Interpretation Comments CK MB (test code = CK MB) 2.2 0.5-3.6 [facility] HermannCARDIAC [id number] 10:15:00 Test Item Value Reference Range Interpretation Comments CK MB Index (test 0.9 1 See_Comment [Automate d message] The code = CK MB Index) system w [facility] generated this result transmit digna reference range : <=2.5. The reference range was not used to interpr et this result as radha l/abnormal. [facility] [id number] 10:15:00 Test Item Value Reference Range Interpretation Comments Troponin-I (test code 0.46 See_Comment [Auto mated message] The = Troponin-I) system which g enerated this result transmit digna reference range : <=0.40. The reference r erica was not used to interpr et this result as radha l/abnormal. [facility] [id number] 10:15:00 Test Item Value Reference Range Interpretation Comments Sed Rate (test code = 11 See_Comment [Auto mated message] The Sed Rate) system which ge nerated this result transmit digna reference range : <=20. The reference range was not used to interpr et this result as radha l/abnormal. [facility] [id number] 10:15:00 Test Item Value Reference Range Interpretation Comments C-REACTIVE PROTEIN (test code = 12.7 C-REACTIVE PROTEIN) [facility] [id number] 10:15:00 Test Item Value Reference Range Interpretation Comments Trig (test code = Trig) 101 [facility] [id number] 10:15:00 Test Item Value Reference Range Interpretation Comments Chol (test code = Chol) 197 [facility] [id number] 10:15:00 Test Item Value Reference Range Interpretation Comments HDL (test code = HDL) 48 [facility] [id number] 10:15:00 Test Item Value Reference Range Interpretation Comments CHD Risk (test code = CHD Risk) 4.10 1 3.90-5.80 [facility] [id number] 10:15:00 Test Item Value Reference Range Interpretation Comments LDL (Calculated) (test code = LDL 129 (Calculated)) [id number] 10:15:00 Test Item Value Reference Range Interpretation Comments VLDL (test code = VLDL) 20 1 [facility] [id number] 05:35:00 Test Item Value Reference Range Interpretation Comments Troponin-I (test code 0.66 See_Comment [Auto mated message] The = Troponin-I) system which g enerated this result transmit digna reference range : <=0.40. The reference r erica was not used to interpr et this result as radha l/abnormal. [facility] TaylorannCHEM [id number] 05:35:00 Test Item Value Reference Range Interpretation Comments Magnesium Lvl (test code = Magnesium 1.8 1.8-2.4 Lvl) [facility] TayloreyefactiveCHEM [id number] 05:35:00 Test Item Value Reference Range Interpretation Comments Phosphorus (test code = Phosphorus) 3.6 2.5-4.5 [facility]I [id number] 00:17:00 Test Item Value Reference Range Interpretation Comments Total CK (test code = Total CK) 262 12-191 [facility] TaylorBioClinica [id number] 00:17:00 Test Item Value Reference Range Interpretation Comments Troponin-I (test code 0.23 See_Comment [Auto mated message] The = Troponin-I) system which g enerated this result transmit digna reference range : <=0.40. The reference r erica was not used to interpr et this result as radha l/abnormal. [facility] Klip [id number] 00:17:00 Test Item Value Reference Range Interpretation Comments Glucose Lvl (test code = Glucose Lvl) 85 70-99 [facility] Klip [id number] 00:17:00 Test Item Value Reference Range Interpretation Comments BUN (test code = BUN) 11 7-22 [facility] Taylor[facility]at[facility] [id number] 00:17:00 Test Item Value Reference Range Interpretation Comments Creatinine Lvl (test code = Creatinine 0.90 0.50-1.40 Lvl) [facility] Klip [id number] 00:17:00 Test Item Value Reference Range Interpretation Comments Sodium Lvl (test code = Sodium Lvl) 140 135-145 [facility] Klip [id number] 00:17:00 Test Item Value Reference Range Interpretation Comments Potassium Lvl (test code = Potassium 3.9 3.5-5.1 Lvl) [facility] Klip [id number] 00:17:00 Test Item Value Reference Range Interpretation Comments Chloride Lvl (test code = Chloride Lvl) 106 95-109 [facility] Klip [id number] 00:17:00 Test Item Value Reference Range Interpretation Comments CO2 (test code = CO2) 28 24-32 [facility] Klip [id number] 00:17:00 Test Item Value Reference Range Interpretation Comments Calcium Lvl (test code = Calcium Lvl) 9.2 8.5-10.5 [facility] [id number] 00:17:00 Test Item Value Reference Range Interpretation Comments Total Protein (test code = Total 7.5 6.4-8.4 Protein) [facility] Klip [id number] 00:17:00 Test Item Value Reference Range Interpretation Comments Albumin Lvl (test code = Albumin Lvl) 3.5 3.5-5.0 [facility] Klip [id number] 00:17:00 Test Item Value Reference Range Interpretation Comments ALT (test code = ALT) 19 See_Comment [Auto mated message] The system which ge nerated this result transmit digna reference range : <=65. The reference range was not used to interpr et this result as radha l/abnormal. [facility] [employer] [id number] 00:17:00 Test Item Value Reference Range Interpretation Comments AST (test code = AST) 21 See_Comment [Auto mated message] The system which ge nerated this result transmit digna reference range : <=37. The reference range was not used to interpr et this result as radha l/abnormal. [facility] [employer] SIUSI4951-88-41 00:17:00 Test Item Value Reference Range Interpretation Comments Alk Phos (test code = Alk Phos) 38 39-136 [facility] [employer] [id number] 00:17:00 Test Item Value Reference Range Interpretation Comments Bili Total (test code = Bili Total) 0.2 0.2-1.3 [facility] [employer] [id number] 00:17:00 Test Item Value Reference Range Interpretation Comments AGAP (test code = AGAP) 9.9 10.0-20.0 [facility] [employer] ETMXQ8779-18-61 00:17:00 Test Item Value Reference Range Interpretation Comments B/C Ratio (test code = B/C Ratio) 12 1 6-25 [facility] [employer] [id number] 00:17:00 Test Item Value Reference Range Interpretation Comments Globulin (test code = Globulin) 4.0 2.7-4.2 [facility] [employer] [id number] 00:17:00 Test Item Value Reference Range Interpretation Comments A/G Ratio (test code = A/G Ratio) 0.9 1 0.7-1.6 [facility] [employer] [id number] 00:17:00 Test Item Value Reference Range Interpretation Comments eGFR (test code = eGFR) 92 [facility]xhoHVVENPRCJKSVM3393-43-06 00:17:00 Test Item Value Reference Range Interpretation Comments S Preg (test code = S Negative *NA*(12/04/19 Preg) 7:17 PM) [facility]CkovpkkQSWLBTLQAQ7153-38-28 00:17:00 Test Item Value Reference Range Interpretation Comments WBC (test code = WBC) 7.2 3.7-10.4 [facility] SystemIapondaZOMNSMPACB1790-86-68 00:17:00 Test Item Value Reference Range Interpretation Comments RBC (test code = RBC) 4.76 4.20-5.40 [facility] SystemMobknhxWPXAJTPYMB8591-19-93 00:17:00 Test Item Value Reference Range Interpretation Comments Hgb (test code = Hgb) 13.9 12.0-16.0 [facility] SystemYavyimyQTUCTCCBQN0884-09-66 00:17:00 Test Item Value Reference Range Interpretation Comments Hct (test code = Hct) 41.7 36.0-48.0 [facility] SystemMzsukynCNHQCBEYDI0861-63-81 00:17:00 Test Item Value Reference Range Interpretation Comments MCV (test code = MCV) 87.6 80.0-98.0 [facility] SystemJmfgdorWVFUPCBAWA3300-89-52 00:17:00 Test Item Value Reference Range Interpretation Comments MCH (test code = MCH) 29.1 pg 27.0-31.0 [facility] SystemMxkpvtvXPUNLYKUFU1877-13-03 00:17:00 Test Item Value Reference Range Interpretation Comments MCHC (test code = MCHC) 33.2 32.0-36.0 [facility] SystemOinpfjaCYPIDQKIUN7911-66-78 00:17:00 Test Item Value Reference Range Interpretation Comments RDW (test code = RDW) 12.4 11.5-14.5 [facility] SystemHlkdpzeUEZJVWWYCY7042-02-60 00:17:00 Test Item Value Reference Range Interpretation Comments Platelet (test code = Platelet) 314 133-450 [facility] SystemQttwjyzDCNGASFJPA5476-43-40 00:17:00 Test Item Value Reference Range Interpretation Comments MPV (test code = MPV) 7.6 7.4-10.4 [facility] SystemOrhobulVHZIFFPZMX2115-60-15 00:17:00 Test Item Value Reference Range Interpretation Comments D-Dimer (test code = D-Dimer) 0.60 [facility] SystemTpydavpKHGLTRXYJQ0911-38-66 00:17:00 Test Item Value Reference Range Interpretation Comments Segs (test code = Segs) 51.6 45.0-75.0 [facility] SystemRjltdxuIYGTSUULUS0401-55-89 00:17:00 Test Item Value Reference Range Interpretation Comments Lymphocytes (test code = Lymphocytes) 31.9 20.0-40.0 [facility] SystemTfklzogVNUFYPFTHG8969-26-30 00:17:00 Test Item Value Reference Range Interpretation Comments Monocytes (test code = Monocytes) 11.0 2.0-12.0 [facility] SystemAaklcocLEGHCZABTZ3189-31-55 00:17:00 Test Item Value Reference Range Interpretation Comments Eosinophils (test code = 4.9 See_Comment [A utomated message] The Eosinophils) system which ge nerated this result tra nsmitted reference range : <=4.0. The reference r erica was not used to int erpret this result as normal/abnormal . [facility] SystemApfqaspTPSCUNFDUV9488-22-19 00:17:00 Test Item Value Reference Range Interpretation Comments Basophils (test code = 0.6 See_Comment [Aut omated message] The Basophils) system which ge nerated this result tra nsmitted reference range : <=1.0. The reference r erica was not used to int erpret this result as normal/abnormal . [facility] SystemAcsjsraZDHOWSQYRM9803-03-78 00:17:00 Test Item Value Reference Range Interpretation Comments Neutrophils # (test code = Neutrophils 3.7 1.5-8.1 #) [facility] SystemZvbozsyLRYCPFEZJM9590-39-57 00:17:00 Test Item Value Reference Range Interpretation Comments Lymphocytes # (test code = Lymphocytes 2.3 1.0-5.5 #) [facility] SystemIagyvblJGFQXYKMBI7932-03-09 00:17:00 Test Item Value Reference Range Interpretation Comments Monocytes # (test code 0.8 See_Comment [Aut omated message] The = Monocytes #) system which generated this result tra nsmitted reference range : <=0.8. The reference r erica was not used to int erpret this result as normal/abnormal . [facility] SystemUqkxgkkDWNPTVGSIS0601-29-15 00:17:00 Test Item Value Reference Range Interpretation Comments Eosinophils # (test code 0.3 See_Comment [A utomated message] The = Eosinophils #) system whic h generated this result tra nsmitted reference range : <=0.5. The reference r erica was not used to int erpret this result as normal/abnormal . [facility] 8 Panel *OW* vkprrvr8200-70-08 13:40:00 Test Item Value Reference Range Interpretation Comments GLUCOSE (test code = GGUL) 91 mg/dL [...] Comments WBC (test code = WBC) 7.6 10\\S\\3/uL 4.5-11.0 RBC (test code = RBC) 4.64 10\\S\\6/uL 4.30-5.70 HGB (test code = HBG) 13.2 g/dL 12.0-15.5 HCT (test code = HCT) 41.7 % 35.0-44.0 MCV (test code = MCV) 89.8 fL 81.0-99.0 MCH (test code = MCH) 28.4 pg 27.0-31.0 MCHC (test code = MCHC) 31.7 g/dL 32.0-36.0 L RDW (test code = RDW) 11.7 % 11.5-14.5 PLT (test code = PLT) 344 10\\S\\3/uL 130-400 MPV (test code = OMPV) 7.2 fL 6.2-10.2 NEUTROP # (test code = NE#) 4.9 10\\S\\3/uL 1.6-8.0 LYMPH # (test code = LY#) 2.0 10\\S\\3/uL 1.1-3.5 MID # (test code = GMID#) 0.7 10\\S\\3/uL 0.0-1.1 GRA % (test code = GRA%) 65.0 % 35.0-73.0 LYMPH % (test code = GLY%) 25.7 % 20.0-55.0 MID % (test code = GMID%) 9.3 % 0.0-10.0 DTSSSGUBP1113-78-95 00:00:00 Test Item Value Reference Range Interpretation Comments AGAP (test code = AGAP) 11.7 10.0-20.0 [facility]MypcytqJSVCZFKEE3359-08-86 00:00:00 Test Item Value Reference Range Interpretation Comments Chloride Lvl (test code = Chloride Lvl) 102 95-109 N [facility] HospitalGnyuzypYTQMZDJBV5843-36-84 00:00:00 Test Item Value Reference Range Interpretation Comments CO2 (test code = CO2) 31 24-32 N [facility] HospitalClldmcqKSLINAWEL8187-78-67 00:00:00 Test Item Value Reference Range Interpretation Comments eGFR (test code = eGFR) See Comment [facility]OycvpfsTAJEACZEH1798-17-52 00:00:00 Test Item Value Reference Range Interpretation Comments Calcium Lvl (test code = Calcium Lvl) 9.4 8.5-10.5 N [facility] TaylorJpqkxjxAYJGSSMJE6277-65-51 00:00:00 Test Item Value Reference Range Interpretation Comments Sodium Lvl (test code = Sodium Lvl) 141 135-145 N [facility] HospitalKnvndojUOMQNWBJE1686-68-81 00:00:00 Test Item Value Reference Range Interpretation Comments Creatinine Lvl (test code = Creatinine 0.7 0.5-1.4 N Lvl) [facility]RhfftklNIKKOHXIT9373-30-62 00:00:00 Test Item Value Reference Range Interpretation Comments Potassium Lvl (test code = Potassium 3.7 3.5-5.1 N Lvl) [facility] CentralQupaldgFJGFQUNXK7774-42-79 00:00:00 Test Item Value Reference Range Interpretation Comments Glucose Lvl (test code = Glucose Lvl) 82 70-99 N [facility] CentralDuidbhyDARIWDFPB3281-33-39 00:00:00 Test Item Value Reference Range Interpretation Comments BUN (test code = BUN) 15 7-22 N [facility] SystemFohxmmzOWCMFRYODT9830-19-92 00:00:00 Test Item Value Reference Range Interpretation Comments Eosinophils (test code = 3.4 See_Comment N [A utomated message] The Eosinophils) system which ge nerated this result tra nsmitted reference range : <=4.0. The reference r erica was not used to int erpret this result as normal/abnormal . [facility] SystemDblvasuMGQLUEQRBY7020-82-04 00:00:00 Test Item Value Reference Range Interpretation Comments Monocytes (test code = Monocytes) 12.2 2.0-12.0 H [facility] SystemWvrxvyjUTXVJQAOST9600-77-37 00:00:00 Test Item Value Reference Range Interpretation Comments Eosinophils # (test code 0.2 See_Comment N [A utomated message] The = Eosinophils #) system whic h generated this result tra nsmitted reference range : <=0.5. The reference r erica was not used to int erpret this result as normal/abnormal . [facility] SystemSfqiuguXVPHWEUUVG3999-88-08 00:00:00 Test Item Value Reference Range Interpretation Comments Basophils # (test code 0.0 See_Comment N [Aut omated message] The = Basophils #) system which generated this result tra nsmitted reference range : <=0.2. The reference r erica was not used to int erpret this result as normal/abnormal . [facility] SystemQqmyuqkSAPXXUEDFR9963-00-55 00:00:00 Test Item Value Reference Range Interpretation Comments Basophils (test code = 0.8 See_Comment N [Aut omated message] The Basophils) system which ge nerated this result tra nsmitted reference range : <=1.0. The reference r erica was not used to int erpret this result as normal/abnormal . [facility] SystemJyqykamUBPFFURRZL3601-81-48 00:00:00 Test Item Value Reference Range Interpretation Comments Lymphocytes # (test code = Lymphocytes 2.3 1.0-5.5 N #) [facility] SystemUlvxblwQPUZLMDRPO4412-37-69 00:00:00 Test Item Value Reference Range Interpretation Comments Monocytes # (test code 0.7 See_Comment N [Aut omated message] The = Monocytes #) system which generated this result tra nsmitted reference range : <=1.6. The reference r erica was not used to int erpret this result as normal/abnormal . [facility] SystemQsngqgoKCZBSEGOJK9211-71-13 00:00:00 Test Item Value Reference Range Interpretation Comments Segs-Bands # (test code = Segs-Bands #) 2.2 1.5-8.7 N [facility] SystemPdohsxmTGMVZQFSIF9718-67-43 00:00:00 Test Item Value Reference Range Interpretation Comments Lymphocytes (test code = Lymphocytes) 42.6 20.0-40.0 H [facility] SystemLwfbmiuTLOVGQRJRZ5145-72-08 00:00:00 Test Item Value Reference Range Interpretation Comments Segs (test code = Segs) 41.0 34.0-64.0 N [facility] SystemIfxvuglEUJSUWLFGU7214-16-89 00:00:00 Test Item Value Reference Range Interpretation Comments WBC (test code = WBC) 5.4 4.5-13.5 N [facility] SystemAaofsswAVQOFUUYVP9586-69-77 00:00:00 Test Item Value Reference Range Interpretation Comments MCH (test code = MCH) 29.8 pg 27.0-31.0 N [facility] SystemExjwrhoVNUFZIPWCC3869-13-15 00:00:00 Test Item Value Reference Range Interpretation Comments Platelet (test code = Platelet) 287 133-450 N [facility] SystemKjxlcooRPJQUNXEJN6609-45-02 00:00:00 Test Item Value Reference Range Interpretation Comments MPV (test code = MPV) 7.2 7.4-10.4 L [facility] SystemQewrgfoIKIQJOSSSD8262-17-23 00:00:00 Test Item Value Reference Range Interpretation Comments MCHC (test code = MCHC) 33.1 32.0-36.0 N [facility] SystemVcrgtwnRNPJNNHJTC5742-35-28 00:00:00 Test Item Value Reference Range Interpretation Comments RDW (test code = RDW) 12.1 11.5-14.5 N [facility] SystemOwxosjtRYLNGDGTYV7868-93-12 00:00:00 Test Item Value Reference Range Interpretation Comments Hct (test code = Hct) 38.3 36.0-48.0 N [facility] SystemCkzyifgNAHABJAZIT3877-24-66 00:00:00 Test Item Value Reference Range Interpretation Comments RBC (test code = RBC) 4.26 4.20-5.40 N [facility] SystemTjabpllMQHCUQXIAA6662-50-63 00:00:00 Test Item Value Reference Range Interpretation Comments MCV (test code = MCV) 89.8 81.0-99.0 N [facility] SystemLttufgzJCQURDRRZS3363-28-64 00:00:00 Test Item Value Reference Range Interpretation Comments Hgb (test code = Hgb) 12.7 12.0-16.0 N [facility]dw[facility]-83 00:00:00 Test Item Value Reference Range Interpretation Comments Culture: Blood (test code = Culture: Blood) [facility] SystemEvxmhpeLGAZZTEZRP4096-66-34 13:36:04 Test Item Value Reference Range Interpretation Comments PTT (test code = PTT) 30.3 s 22.9-35.8 N [facility] SystemDqokjalUALOVZWJVH5455-06-91 13:36:04 Test Item Value Reference Range Interpretation Comments INR (test code = INR) 1.09 0.85-1.17 N [facility] SystemIygyilnQFLYXPDZLO6466-89-22 13:36:04 Test Item Value Reference Range Interpretation Comments PT (test code = PT) 14.3 s 12.0-14.7 N [facility] SystemGjyrjkiUJHAEUNHUT3431-73-28 09:08:25 Test Item Value Reference Range Interpretation Comments PTT (test code = PTT) 28.2 s 22.9-35.8 N [facility] SystemKugurmhCRIJEDNVWF3097-30-88 09:08:25 Test Item Value Reference Range Interpretation Comments PT (test code = PT) 14.2 s 12.0-14.7 N [facility] SystemGrxbakkSBMSOHEGLO4483-26-73 09:08:25 Test Item Value Reference Range Interpretation Comments INR (test code = INR) 1.08 0.85-1.17 N [facility] SystemDbgplogISMEPQJKOU3185-17-71 05:38:00 Test Item Value Reference Range Interpretation Comments PTT (test code = PTT) 29.2 s 22.9-35.8 N [facility] SystemBjaabxeGKUTUEVYRT8543-46-69 05:38:00 Test Item Value Reference Range Interpretation Comments INR (test code = INR) 1.01 0.85-1.17 N [facility] SystemAwwwzvpZKSHVCUONJ2573-06-78 05:38:00 Test Item Value Reference Range Interpretation Comments PT (test code = PT) 13.5 s 12.0-14.7 N [facility] SystemIzpcrxiIQFBFRHJFO4864-86-87 02:57:45 Test Item Value Reference Range Interpretation Comments G-value (test code = G-value) 6.3 5.0-11.6 N [facility] SystemXqyxvnxJWAEJRGQSH5561-75-95 02:57:45 Test Item Value Reference Range Interpretation Comments Max Amp (test code = Max Amp) 56 mm 52-71 N [facility] SystemYnyebhgHGBSYSXVEG5816-07-93 02:57:45 Test Item Value Reference Range Interpretation Comments Angle (test code = Angle) 72 degrees 64-80 N [facility] SystemQcfmqhiGMIQYZZHJR6743-97-93 02:57:45 Test Item Value Reference Range Interpretation Comments Split Point (test code = Split Point) 0.3 min [facility] SystemFezuqnuURGHGWKRVJ4108-66-94 02:57:45 Test Item Value Reference Range Interpretation Comments R-time (test code = R-time) 0.4 min 0.4-0.7 N [facility] SystemMrdqmziRBVFHHCOPU7750-30-34 02:57:45 Test Item Value Reference Range Interpretation Comments K-time (test code = K-time) 1.7 min 0.6-2.3 N [facility] SystemBaqztzvIFUOYQIBKQ4099-31-12 02:57:45 Test Item Value Reference Range Interpretation Comments ACT (TEG) (test code = ACT (TEG)) 89 s 86-118 N [facility] SystemQcfkjybGIRAYUSAQS7310-29-49 02:57:45 Test Item Value Reference Range Interpretation Comments Rapid TEG Sample Type Citrated Whole Blood (test code = Rapid TEG Sample Type) [facility] SystemJhxokcgXPTNZPBJBS6276-61-76 02:57:45 Test Item Value Reference Range Interpretation Comments Estimated % Lysis (test 0.0 See_Comment N [Au tomated message] The code = Estimated % system wh ich generated Lysis) this result tra nsmitted reference range : <=7.5. The reference r erica was not used to int erpret this result as normal/abnormal . [facility] SystemTpvsxaaEIDKSBVMFX4257-59-88 02:57:37 Test Item Value Reference Range Interpretation Comments D-Dimer (test code = D-Dimer) 0.32 [facility] CentralBpnpxvsJQHUKDNBG4765-27-48 22:36:00 Test Item Value Reference Range Interpretation Comments eGFR (test code = eGFR) 112 [facility] CentralJfxqriiELMYRXBDF5466-26-35 22:36:00 Test Item Value Reference Range Interpretation Comments Glucose Lvl (test code = Glucose Lvl) 102 70-99 H [facility] CentralLhakwnfUNXBJEFQK6438-21-97 22:36:00 Test Item Value Reference Range Interpretation Comments Creatinine Lvl (test code = Creatinine 0.6 0.5-1.4 N Lvl) [facility] CentralBffxmlqQGYUVHEJS3708-03-65 22:36:00 Test Item Value Reference Range Interpretation Comments BUN (test code = BUN) 15 7-22 N [facility] CentralGclwfixNZAWOBRRW3374-45-13 22:36:00 Test Item Value Reference Range Interpretation Comments Sodium Lvl (test code = Sodium Lvl) 144 135-145 N [facility] CentralAelhzkrBCKSZKPBL1278-22-33 22:36:00 Test Item Value Reference Range Interpretation Comments Calcium Lvl (test code = Calcium Lvl) 8.1 8.5-10.5 L [facility] CentralZnoxnaxRWUMIFZSI0922-22-21 22:36:00 Test Item Value Reference Range Interpretation Comments CO2 (test code = CO2) 25 24-32 N [facility] CentralYazggsoCLOWMRPVR8814-19-73 22:36:00 Test Item Value Reference Range Interpretation Comments Potassium Lvl (test code = Potassium 4.2 3.5-5.1 N Lvl) [facility] CentralAetamwuTKMMSOTHT6483-75-21 22:36:00 Test Item Value Reference Range Interpretation Comments Chloride Lvl (test code = Chloride Lvl) 108 95-109 N [facility] CentralPtzpsmtNVPXWHKLB7741-91-06 22:36:00 Test Item Value Reference Range Interpretation Comments AGAP (test code = AGAP) 15.2 10.0-20.0 N [facility] SystemHbraikxMLNVNEBKJZ0279-31-90 22:36:00 Test Item Value Reference Range Interpretation Comments MCH (test code = MCH) 30.3 pg 27.0-31.0 N [facility] SystemOadkeflURDVIZFCTS5670-46-09 22:36:00 Test Item Value Reference Range Interpretation Comments RDW (test code = RDW) 12.0 11.5-14.5 N [facility] SystemMhtjwpfZRMTXSRXWH4342-51-65 22:36:00 Test Item Value Reference Range Interpretation Comments MCHC (test code = MCHC) 34.0 32.0-36.0 N [place] [address]-05-09 22:36:00 Test Item Value Reference Range Interpretation Comments MPV (test code = MPV) 7.4 7.4-10.4 N [facility] SystemPrjapskZOQWYTEQOT8331-82-83 22:36:00 Test Item Value Reference Range Interpretation Comments Platelet (test code = Platelet) 216 133-450 N [facility] SystemAurywnxLNKCGVIYOF7065-23-89 22:36:00 Test Item Value Reference Range Interpretation Comments RBC (test code = RBC) 4.00 4.20-5.40 L [facility] SystemWeoahuiAWLAIBAFAO6522-65-89 22:36:00 Test Item Value Reference Range Interpretation Comments Hct (test code = Hct) 35.7 36.0-48.0 L [facility] SystemHqfpklfDLFVUDKJTX6041-87-86 22:36:00 Test Item Value Reference Range Interpretation Comments Hgb (test code = Hgb) 12.1 12.0-16.0 N [facility] SystemCpnbrwkZGJQBKYZUW7815-28-24 22:36:00 Test Item Value Reference Range Interpretation Comments MCV (test code = MCV) 89.2 81.0-99.0 N [facility] SystemZwdwxelTIWQHNLAFH6787-22-24 22:36:00 Test Item Value Reference Range Interpretation Comments WBC (test code = WBC) 6.3 4.5-13.5 N [facility] SystemYbnxtttENOANYQZKK9769-95-09 22:36:00 Test Item Value Reference Range Interpretation Comments Basophils # (test code 0.0 See_Comment N [Aut omated message] The = Basophils #) system which generated this result tra nsmitted reference range : <=0.2. The reference r erica was not used to int erpret this result as normal/abnormal . [facility] SystemQnvwnkiZGUAZBVDZP5145-71-82 22:36:00 Test Item Value Reference Range Interpretation Comments Eosinophils (test code = 2.8 See_Comment N [A utomated message] The Eosinophils) system which ge nerated this result tra nsmitted reference range : <=4.0. The reference r erica was not used to int erpret this result as normal/abnormal . [facility] SystemTzzgeggQSOOITCHCR9538-39-86 22:36:00 Test Item Value Reference Range Interpretation Comments Basophils (test code = 0.7 See_Comment N [Aut omated message] The Basophils) system which ge nerated this result tra nsmitted reference range : <=1.0. The reference r erica was not used to int erpret this result as normal/abnormal . [facility] SystemWuvluqiLIFQTHWPYQ5864-47-95 22:36:00 Test Item Value Reference Range Interpretation Comments Monocytes (test code = Monocytes) 11.5 2.0-12.0 N [facility] SystemXtfqcbtUVSCRWAQIV1550-83-01 22:36:00 Test Item Value Reference Range Interpretation Comments Lymphocytes # (test code = Lymphocytes 2.0 1.0-5.5 N #) [facility] SystemExrfjwiAMFJPIAKYX6876-06-17 22:36:00 Test Item Value Reference Range Interpretation Comments Segs-Bands # (test code = Segs-Bands #) 3.4 1.5-8.7 N [facility] SystemEcvgoipCWSJYFYPPV8944-45-22 22:36:00 Test Item Value Reference Range Interpretation Comments Eosinophils # (test code 0.2 See_Comment N [A utomated message] The = Eosinophils #) system [facility] h generated this result tra nsmitted reference range : <=0.5. The reference r erica was not used to int erpret this result as normal/abnormal . [facility] SystemFobmltcNBYIPEWMPW9211-93-35 22:36:00 Test Item Value Reference Range Interpretation Comments Lymphocytes (test code = Lymphocytes) 32.1 20.0-40.0 N [facility] SystemKommkpeGSROWJBTLX3456-96-35 22:36:00 Test Item Value Reference Range Interpretation Comments Monocytes # (test code 0.7 See_Comment N [Aut omated message] The = Monocytes #) system which generated this result tra nsmitted reference range : <=1.6. The reference r erica was not used to int erpret this result as normal/abnormal . [facility] SystemSomikspYYZCBPTYKO0951-66-98 22:36:00 Test Item Value Reference Range Interpretation Comments Segs (test code = Segs) 52.9 34.0-64.0 N [facility]typzyHgrnxywwsmek4058-86-85 16:14:00 Test Item Value Reference Range Interpretation Comments Culture: Blood (test code = Culture: Blood) [facility] CentralHkphptjKBADYYDSR6949-78-22 16:00:00 Test Item Value Reference Range Interpretation Comments Lactic Acid Lvl (test code = Lactic 0.6 0.5-2.2 N Acid Lvl) [facility] CentralSqwgethQIAMGKAEM1637-54-22 16:00:00 Test Item Value Reference Range Interpretation Comments S Preg (test code = S Negative *NA*(10/16/2012 Preg) 11:00:00) [facility] CentralEpfqqwmRNSJLAHDS9351-19-61 16:00:00 Test Item Value Reference Range Interpretation Comments AGAP (test code = AGAP) 11.0 10.0-20.0 N [facility] CentralIlukfauZGOFXRKAY1392-92-80 16:00:00 Test Item Value Reference Range Interpretation Comments eGFR (test code = eGFR) 134 [facility] CentralUzvqnxvCFGZUYTUO4129-99-10 16:00:00 Test Item Value Reference Range Interpretation Comments Potassium Lvl (test code = Potassium 4.0 3.5-5.1 N Lvl) [facility] CentralAjlqgfmYVAMNRLBU9236-27-94 16:00:00 Test Item Value Reference Range Interpretation Comments Sodium Lvl (test code = Sodium Lvl) 141 135-145 N [facility] CentralKbfdbuqFRTTOFTYB6476-03-02 16:00:00 Test Item Value Reference Range Interpretation Comments Creatinine Lvl (test code = Creatinine 0.5 0.5-1.4 N Lvl) [facility] CentralKeosaptJNYNUDDPH4970-13-95 16:00:00 Test Item Value Reference Range Interpretation Comments BUN (test code = BUN) 15 7-22 N [facility] CentralTkhhbctQBRZCAZUX2613-57-62 16:00:00 Test Item Value Reference Range Interpretation Comments Glucose Lvl (test code = Glucose Lvl) 86 70-99 N [facility] CentralBvfdqpdHEZPCJEWN3853-11-44 16:00:00 Test Item Value Reference Range Interpretation Comments Calcium Lvl (test code = Calcium Lvl) 9.2 8.5-10.5 N [facility] CentralEnfznejKZABPNQZU2564-29-02 16:00:00 Test Item Value Reference Range Interpretation Comments CO2 (test code = CO2) 28 24-32 N [facility]EijxjpwIZTBPJXNM5234-45-29 16:00:00 Test Item Value Reference Range Interpretation Comments Chloride Lvl (test code = Chloride Lvl) 106 95-109 N [facility]TmbnqytXMVZURGDXX1318-49-11 16:00:00 Test Item Value Reference Range Interpretation Comments MCHC (test code = MCHC) 32.9 32.0-36.0 N [facility] SystemBvshgbpTEHIBNEMDY1212-28-36 16:00:00 Test Item Value Reference Range Interpretation Comments Hct (test code = Hct) 39.8 36.0-48.0 N [facility] SystemClyhnysPYWMOPYRFA0923-38-23 16:00:00 Test Item Value Reference Range Interpretation Comments MCH (test code = MCH) 29.1 pg 27.0-31.0 N [facility] SystemEgypwduWCJANVPFNG5964-59-31 16:00:00 Test Item Value Reference Range Interpretation Comments MCV (test code = MCV) 88.6 81.0-99.0 N [facility] SystemWhtbiqtWXEKYQWJQN2691-55-23 16:00:00 Test Item Value Reference Range Interpretation Comments RDW (test code = RDW) 12.6 11.5-14.5 N [facility] SystemUgnlcntAOFVRHTFFR6122-70-98 16:00:00 Test Item Value Reference Range Interpretation Comments Platelet (test code = Platelet) 238 133-450 N [facility] SystemRtxmepfOAMANXUXHO1788-76-76 16:00:00 Test Item Value Reference Range Interpretation Comments MPV (test code = MPV) 7.2 7.4-10.4 L [facility] SystemLulqeseLPNMMPGIZS0821-70-51 16:00:00 Test Item Value Reference Range Interpretation Comments WBC (test code = WBC) 6.2 4.5-13.5 N [facility] SystemDfffhgzMTWITBFPBR2768-90-92 16:00:00 Test Item Value Reference Range Interpretation Comments RBC (test code = RBC) 4.49 4.20-5.40 N [facility] SystemAhbndtwYAXKUQIOCD8169-27-46 16:00:00 Test Item Value Reference Range Interpretation Comments Hgb (test code = Hgb) 13.1 12.0-16.0 N [facility] SystemEqkievaRGJOOYXHJR9767-01-23 16:00:00 Test Item Value Reference Range Interpretation Comments PTT (test code = PTT) 30.3 s 22.9-35.8 N [facility] SystemVonrxqiAVTWDCZEUM0941-49-98 16:00:00 Test Item Value Reference Range Interpretation Comments INR (test code = INR) 1.17 0.85-1.17 N [facility] SystemBleujmzQUGSXIFVAD3597-98-38 16:00:00 Test Item Value Reference Range Interpretation Comments PT (test code = PT) 15.1 s 12.0-14.7 H [facility] SystemKuessacLHXMNQYESZ4028-24-26 16:00:00 Test Item Value Reference Range Interpretation Comments Fibrinogen Lvl (test code = Fibrinogen 294 230-510 N Lvl) [facility] SystemDmqsrpnMQNGYYUVSH7004-37-79 16:00:00 Test Item Value Reference Range Interpretation Comments FSP (test code = FSP) (10/16/2012 11:00:00) N [facility] SystemKhwshuqRPLCQAXEQJ3903-45-49 16:00:00 Test Item Value Reference Range Interpretation Comments D-Dimer (test code = 4*ABN*(10/16/2012 A D-Dimer) 11:00:00) [facility] SystemPdwcgjgEDZWJKXHJM4178-84-23 16:00:00 Test Item Value Reference Range Interpretation Comments Eosinophils # (test code 0.1 See_Comment N [A utomated message] The = Eosinophils #) system whic h generated this result tra nsmitted reference range : <=0.5. The reference r erica was not used to int erpret this result as normal/abnormal . [facility] SystemTegitfpTXMESFMYWR0309-76-62 16:00:00 Test Item Value Reference Range Interpretation Comments Basophils # (test code 0.0 See_Comment N [Aut omated message] The = Basophils #) system which generated this result tra nsmitted reference range : <=0.2. The reference r erica was not used to int erpret this result as normal/abnormal . [facility] SystemAfelvobKPJKMRSYQJ2014-07-39 16:00:00 Test Item Value Reference Range Interpretation Comments Monocytes # (test code 0.5 See_Comment N [Aut omated message] The = Monocytes #) system which generated this result tra nsmitted reference range : <=1.6. The reference r erica was not used to int erpret this result as normal/abnormal . [facility] SystemVpdqihkNGJVFVCQUI3857-63-92 16:00:00 Test Item Value Reference Range Interpretation Comments Lymphocytes # (test code = Lymphocytes 1.9 1.0-5.5 N #) [facility] SystemZaszwiuMOITODYXPR1137-64-49 16:00:00 Test Item Value Reference Range Interpretation Comments Lymphocytes (test code = Lymphocytes) 31.0 20.0-40.0 N [facility] SystemGhlvzfeHWBCRRCFOU9291-08-39 16:00:00 Test Item Value Reference Range Interpretation Comments Segs (test code = Segs) 59.7 34.0-64.0 N [facility] SystemDkuefkxLEEVUYPFQU9209-24-37 16:00:00 Test Item Value Reference Range Interpretation Comments Monocytes (test code = Monocytes) 8.3 2.0-12.0 N [facility] SystemDozqslmZXZSQJFLTX5495-03-84 16:00:00 Test Item Value Reference Range Interpretation Comments Eosinophils (test code = 0.8 See_Comment N [A utomated message] The Eosinophils) system which ge nerated this result tra nsmitted reference range : <=4.0. The reference r erica was not used to int erpret this result as normal/abnormal . [facility] SystemZlsdlwrUPQYSKEVAX4006-50-36 16:00:00 Test Item Value Reference Range Interpretation Comments Basophils (test code = 0.2 See_Comment N [Aut omated message] The Basophils) system which ge nerated this result tra nsmitted reference range : <=1.0. The reference r erica was not used to int erpret this result as normal/abnormal . [facility] SystemYnwpqtrJTUPGYEXTQ4720-08-15 16:00:00 Test Item Value Reference Range Interpretation Comments Segs-Bands # (test code = Segs-Bands #) 3.7 1.5-8.7 N [facility] CentralYqfovfeRCVUORXSN4080-58-22 18:39:00 Test Item Value Reference Range Interpretation Comments Lipase Lvl (test code = Lipase Lvl) 78 73-393 N [facility] CentralCbpspwvRJSCUIRLZ4938-71-03 18:39:00 Test Item Value Reference Range Interpretation Comments eGFR (test code = eGFR) 96 [facility] CentralWnvyymePXHXWMXLW8651-24-19 18:39:00 Test Item Value Reference Range Interpretation Comments AST (test code = AST) 20 See_Comment N [Auto mated message] The system which ge nerated this result transmit digna reference range : <=37. The reference range was not used to interpr et this result as radha l/abnormal. [facility] CentralMhnvxawFSBCQNYHN7692-95-64 18:39:00 Test Item Value Reference Range Interpretation Comments Bili Total (test code = Bili Total) 0.4 0.2-1.3 N [facility] CentralEtgszniGDCLDJNMA5869-62-37 18:39:00 Test Item Value Reference Range Interpretation Comments Alk Phos (test code = Alk Phos) 160 80-406 N [facility] CentralBnfeagaNGRTMMFZW5991-55-43 18:39:00 Test Item Value Reference Range Interpretation Comments AGAP (test code = AGAP) 11.6 10.0-20.0 N [facility] CentralIbfxwvxKRLBXFKZI7817-87-30 18:39:00 Test Item Value Reference Range Interpretation Comments Calcium Lvl (test code = Calcium Lvl) 9.0 8.5-10.5 N [facility] CentralDtrvuowQMDRNHLKL9944-65-17 18:39:00 Test Item Value Reference Range Interpretation Comments ALT (test code = ALT) 16 See_Comment N [Auto mated message] The system which ge nerated this result transmit digna reference range : <=65. The reference range was not used to interpr et this result as radha l/abnormal. [facility] CentralHeonlaeRFYAYVLMI4154-21-12 18:39:00 Test Item Value Reference Range Interpretation Comments A/G Ratio (test code = A/G Ratio) 1.3 0.7-1.6 N [facility] CentralIrhfoloVKANPGLPN7844-10-20 18:39:00 Test Item Value Reference Range Interpretation Comments CO2 (test code = CO2) 28 24-32 N [facility] CentralCgvngssMVOVDMBCP9880-55-36 18:39:00 Test Item Value Reference Range Interpretation Comments Chloride Lvl (test code = Chloride Lvl) 104 95-109 N [facility] CentralHwangoyATTCNCOYA8060-26-45 18:39:00 Test Item Value Reference Range Interpretation Comments Potassium Lvl (test code = Potassium 3.6 3.5-5.1 N Lvl) [facility] CentralYrhpmsnOANLPPYUR6964-07-59 18:39:00 Test Item Value Reference Range Interpretation Comments Creatinine Lvl (test code = Creatinine 0.7 0.5-1.4 N Lvl) [facility] CentralYucsbkiTNOEQEWHE0849-17-41 18:39:00 Test Item Value Reference Range Interpretation Comments BUN (test code = BUN) 13 7-22 N [facility] CentralMngrgpmADKMLRGHE5066-59-58 18:39:00 Test Item Value Reference Range Interpretation Comments Sodium Lvl (test code = Sodium Lvl) 140 135-145 N [facility] CentralOfzgvuoOWQBTSNAD2684-32-33 18:39:00 Test Item Value Reference Range Interpretation Comments Total Protein (test code = Total 7.5 6.4-8.4 N Protein) [facility] CentralZzmybmgYVPMZVVRI8005-42-59 18:39:00 Test Item Value Reference Range Interpretation Comments Albumin Lvl (test code = Albumin Lvl) 4.2 3.5-5.0 N [facility] CentralXawridtTMPBFCTMS9124-96-31 18:39:00 Test Item Value Reference Range Interpretation Comments B/C Ratio (test code = B/C Ratio) 19 6-25 N [facility] CentralXbgwstnCGBSGVETI1039-44-73 18:39:00 Test Item Value Reference Range Interpretation Comments Globulin (test code = Globulin) 3.3 2.0-4.0 N [facility] CentralNhndewkVUMGZGLRS1324-30-94 18:39:00 Test Item Value Reference Range Interpretation Comments Glucose Lvl (test code = Glucose Lvl) 97 70-99 N [facility] SystemPcsjsdvXHSCQTRZXY1523-23-32 18:39:00 Test Item Value Reference Range Interpretation Comments RDW (test code = RDW) 12.8 11.5-14.5 N [facility] SystemWphexpvAPPHUSGLDA0791-66-76 18:39:00 Test Item Value Reference Range Interpretation Comments Platelet (test code = Platelet) 256 133-450 N [facility] SystemPhillkaBSONHJGLKI3141-70-36 18:39:00 Test Item Value Reference Range Interpretation Comments MCV (test code = MCV) 86.8 81.0-99.0 N [facility] SystemWlsdzdpWSFMKYKHQL6444-89-65 18:39:00 Test Item Value Reference Range Interpretation Comments MPV (test code = MPV) 7.3 7.4-10.4 L [facility] SystemKkbqktsLVQSBQGKIE8409-63-92 18:39:00 Test Item Value Reference Range Interpretation Comments MCHC (test code = MCHC) 34.9 32.0-36.0 N [facility] SystemZolkyjtWCUWATLSAV2290-84-80 18:39:00 Test Item Value Reference Range Interpretation Comments MCH (test code = MCH) 30.3 pg 27.0-31.0 N [facility] SystemRnywzirLDUAZKNYNU7714-03-57 18:39:00 Test Item Value Reference Range Interpretation Comments Hgb (test code = Hgb) 13.6 12.0-16.0 N [facility] SystemUrwdduqLETYEANGGW1109-36-41 18:39:00 Test Item Value Reference Range Interpretation Comments Hct (test code = Hct) 39.0 36.0-48.0 N [facility] SystemNlykuioFRXILRADDK3186-91-90 18:39:00 Test Item Value Reference Range Interpretation Comments RBC (test code = RBC) 4.49 4.20-5.40 N [facility] SystemGsuqewhQNCMQMALFR1080-28-03 18:39:00 Test Item Value Reference Range Interpretation Comments WBC (test code = WBC) 4.8 4.5-13.5 N [facility] SystemCjrnbvuOCUYYOBKPC4167-82-12 18:39:00 Test Item Value Reference Range Interpretation Comments Basophils # (test code 0.0 See_Comment N [Aut omated message] The = Basophils #) system which generated this result tra nsmitted reference range : <=0.2. The reference r erica was not used to int erpret this result as normal/abnormal . [facility] SystemNujorkeLRPMWFNRGM7723-02-99 18:39:00 Test Item Value Reference Range Interpretation Comments Eosinophils # (test code 0.1 See_Comment N [A utomated message] The = Eosinophils #) system whic h generated this result tra nsmitted reference range : <=0.5. The reference r erica was not used to int erpret this result as normal/abnormal . [facility] SystemRkaczpvIYXFEWNMOL7776-84-97 18:39:00 Test Item Value Reference Range Interpretation Comments Lymphocytes # (test code = Lymphocytes 2.1 1.0-5.5 N #) [facility] SystemNkmweluPGBQLQAXJL9911-31-81 18:39:00 Test Item Value Reference Range Interpretation Comments Monocytes # (test code 0.5 See_Comment N [Aut omated message] The = Monocytes #) system which generated this result tra nsmitted reference range : <=1.6. The reference r erica was not used to int erpret this result as normal/abnormal . [facility] SystemAppznhfZCLUPZNYOJ7197-51-46 18:39:00 Test Item Value Reference Range Interpretation Comments Segs-Bands # (test code = Segs-Bands #) 2.0 1.5-8.7 N [facility] SystemOvzniroISGAPYJYYY6500-17-11 18:39:00 Test Item Value Reference Range Interpretation Comments Basophils (test code = 0.6 See_Comment N [Aut omated message] The Basophils) system which ge nerated this result tra nsmitted reference range : <=1.0. The reference r erica was not used to int erpret this result as normal/abnormal . [facility]KjvzcfySQTXZFKKOT1566-58-51 18:39:00 Test Item Value Reference Range Interpretation Comments Lymphocytes (test code = Lymphocytes) 44.5 20.0-40.0 H [facility] SystemMvhjtliFCKWEZLUXZ6290-49-04 18:39:00 Test Item Value Reference Range Interpretation Comments Monocytes (test code = Monocytes) 11.1 2.0-12.0 N [facility]LnygnfdYZOQBKPFKD5319-64-09 18:39:00 Test Item Value Reference Range Interpretation Comments Segs (test code = Segs) 41.1 34.0-64.0 N [facility] SystemZbftxqjDAGNKNKSYY6405-19-00 18:39:00 Test Item Value Reference Range Interpretation Comments Eosinophils (test code = 2.7 See_Comment N [A utomated message] The Eosinophils) system which ge nerated this result tra nsmitted reference range : <=4.0. The reference r erica was not used to int erpret this result as normal/abnormal . [facility]ZueyfqsMZUCPZJEID1545-63-64 18:39:00 Test Item Value Reference Range Interpretation Comments [place] Scr (test code = Negative (07/22/2012 N [place]) 12:39:00) [facility] HospitalShmeqtgKKOWI6598-05-74 18:39:00 Test Item Value Reference Range Interpretation Comments Grp A Strep Scr (test Negative (07/22/2012 N code = Grp A Strep 12:39:00) Scr) [facility] HospitalImyvfvdAtvqvpjxcaca3089-37-44 18:39:00 Test Item Value Reference Range Interpretation Comments Culture: Throat Strep Screen (test code = Culture: Throat Strep Screen) [facility] HospitalRpreeexBTVZUAWQK9391-25-52 17:48:00 Test Item Value Reference Range Interpretation Comments U Preg (test code = U Negative (07/22/2012 N Preg) 11:48:00) [facility] HospitalSypjgsjJHYOILLTVG6043-98-20 17:48:00 Test Item Value Reference Range Interpretation Comments UA Sq Epi (test code = Few /LPF (07/22/2012 N UA Sq Epi) 11:48:00) [facility] HospitalWwustbrHEUJTMPAPN8677-35-14 17:48:00 Test Item Value Reference Range Interpretation Comments Micro? (test code = Performed (07/22/2012 N Micro?) 11:48:00) [facility] HospitalSwurpvpMIVXKWKWUG1909-19-58 17:48:00 Test Item Value Reference Range Interpretation Comments UA RBC (test 0-2 /HPF See_Comment N [Automated mes shaheen] code = UA RBC) (07/22/2012 The system wh ich 11:48:00) generated this result transmitted ref erence range: <=2. The reference range was not used to int erpret this result as normal/abnormal . [facility] HospitalNxuurwgUMZZPRSTOT7618-71-58 17:48:00 Test Item Value Reference Range Interpretation Comments UA Bacteria (test code Occasional /HPF N = UA Bacteria) (07/22/2012 11:48:00) [facility]NqtmrqlSHQDEDIIIN7627-79-06 17:48:00 Test Item Value Reference Range Interpretation Comments UA WBC (test code = UA 0-2 /HPF (07/22/2012 N WBC) 11:48:00) [facility] NorthwestUmmtfxlMGAEWWFDRU9867-68-92 17:48:00 Test Item Value Reference Range Interpretation Comments UA Leuk Est (test Negative (07/22/2012 N code = UA Leuk Est) 11:48:00) [facility] HospitalGbzkheoMSBTDPEBHW3940-30-02 17:48:00 Test Item Value Reference Range Interpretation Comments UA Nitrite (test code Negative (07/22/2012 N = UA Nitrite) 11:48:00) [facility]GgfderpNAMRMRTWRB7693-19-87 17:48:00 Test Item Value Reference Range Interpretation Comments UA Urobilinogen (test code = UA 0.2 0.1-1.0 N Urobilinogen) [facility] HospitalIeyqrzbNXPCFVRKRJ2576-62-91 17:48:00 Test Item Value Reference Range Interpretation Comments UA Bili (test code = Negative *NA*(07/22/2012 UA Bili) 11:48:00) [facility] HospitalRdraiypDNNHXZFRCH3552-23-24 17:48:00 Test Item Value Reference Range Interpretation Comments UA Blood (test code = Negative (07/22/2012 N UA Blood) 11:48:00) [facility]KqxhkbnLOMODZKETJ7292-23-14 17:48:00 Test Item Value Reference Range Interpretation Comments UA Ketones (test code Negative mg/dL = UA Ketones) *NA*(07/22/2012 11:48:00) [facility]kngkefFXYAACPEJX6765-00-45 17:48:00 Test Item Value Reference Range Interpretation Comments UA Glucose (test code Negative mg/dL N = UA Glucose) (07/22/2012 11:48:00) [facility] CenterEqplnvmKYBVZXRAEJ7482-60-26 17:48:00 Test Item Value Reference Range Interpretation Comments UA pH (test code = UA pH) 6.5 1 5.0-8.0 N [facility] CenterWyqgcwuGGWZGBMPBN7465-00-18 17:48:00 Test Item Value Reference Range Interpretation Comments UA Protein (test code Negative mg/dL N = UA Protein) (07/22/2012 11:48:00) [facility] CenterQcflotpDPAACEDFDD2059-95-19 17:48:00 Test Item Value Reference Range Interpretation Comments UA Spec Grav (test code = UA Spec 1.025 1 N Grav) [facility] CenterRofujgkNEZRJZBLVQ2028-47-34 17:48:00 Test Item Value Reference Range Interpretation Comments UA Turbidity (test code = Clear (07/22/2012 N UA Turbidity) 11:48:00) [facility] CenterYirsdquSXWJLCRSWO4286-93-67 17:48:00 Test Item Value Reference Range Interpretation Comments UA Color (test code = Yellow *NA*(07/22/2012 UA Color) 11:48:00) [facility]UowtfilGYNJX9256-10-09 03:05:00 Test Item Value Reference Range Interpretation Comments Grp A Strep Scr (test Negative (11/25/2011 N code = Grp A Strep 22:05:00) Scr) [facility]
--- NOTE | 2022-05-27 19:34 | RAD REPORT ---
EXAM DESCRIPTION: RAD - Elbow Left 3 View - 05/27/2022 6:48 pm CLINICAL HISTORY: PAINfollowing fall 4 days earlier COMPARISON: None. FINDINGS: No fracture is identified and no elevated posterior fat pad. There is no dislocation or pe riosteal reaction noted. No foreign body or other soft tissue abnormality. IMPRESSION: Negative left elbow examination.
--- NOTE | 2022-05-27 19:38 | EDPHYS ---
Physician Documentation [facility] Name: Naeem Capone Age: 26 yrs Sex: Female : 1995 Arrival Date: 05/27/2022 Time: 17:43 Bed 13 Private MD: ED Physician Rodolfo Johnson HPI: 05/27 18:20 This 26 yrs old Female presents to ER via Ambulatory with complaints of Elbow Injury. kb 18:20 The patient or guardian complains of an abrasion, decreased range of motion, injury, kb pain, swelling, tenderness. The complaints affect the left elbow. Context: The problem was sustained outdoors, resulted from fell out of golDabbleart. Onset: The symptoms/episode began/occurred 5 day(s) ago. Treatment prior to arrival includes: no previous treatment. Modifying factors: The symptoms are alleviated by nothing. the symptoms are aggravated by movement. Associated signs and symptoms: Pertinent positives: decreased range of motion, pain, swelling. Severity of symptoms: At their worst the symptoms were moderate, in the emergency department the symptoms are unchanged. The patient has not experienced similar symptoms in the past. The patient has not recently seen a physician. Pt reports she fell out of a golfcart 5 days ago and injured left elbow. States it hasn't gotten any better so that is why she came in. Historical: - Allergies: 17:49 No Known Allergies; hb - PMHx: 17:49 ADD; hb ROS: 18:20 Constitutional: Negative for fever, chills, and weight loss. kb 18:20 MS/extremity: Positive for injury or acute deformity, abrasion, decreased range of motion, pain, swelling, tenderness, of the left elbow. 18:20 All other systems are negative. Exam: 18:19 Constitutional: This is a well developed, well nourished patient who is awake, alert, kb and in no acute distress. Head/Face: Normocephalic, atraumatic. ENT: Moist Mucous membranes Cardiovascular: Regular rate and rhythm with a normal S1 and S2. No gallops, murmurs, or rubs. No pulse deficits. Respiratory: Respirations even and unlabored. No increased work of breathing. Talking in full sentences Abdomen/GI: Soft, non-tender. No distention Neuro: Awake and alert, GCS 15, oriented to person, place, time, and situation. Moves all extremities. Normal gait. Psych: Awake, alert, with orientation to person, place and time. Behavior, mood, and affect are within normal limits. 18:19 Musculoskeletal/extremity: Extremities: grossly normal except: noted in the left elbow: abrasion, decreased ROM, pain, swelling, tenderness, ROM: limited active range of motion due to pain, in the left elbow, Circulation is intact in all extremities. Sensation intact. 18:19 Skin: injury, abrasion(s), moderate sized abrasion noted, of the left elbow. Vital Signs: 17:48 BP 137 / 83; Pulse 88; Resp 16; Temp 97.7; Pulse Ox 100% on R/A; Weight 63.5 kg; Height hb 5 ft. 8 in. (172.72 cm); Pain 8/10; 18:19 BP 115 / 66; Pulse 71; Resp 18 S; Pulse Ox 100% on R/A; Pain 7/10; kc6 19:30 BP 111 / 69; Pulse 67; Resp 16; Pulse Ox 99% on R/A; jb4 17:48 Body Mass Index 21.29 (63.50 kg, 172.72 cm) hb MDM: 17:44 Patient medically screened. kb 18:19 Data reviewed: vital signs, nurses notes. Data interpreted: Pulse oximetry: on room air kb is 100 %. Interpretation: normal. 19:37 Counseling: I had a detailed discussion with the patient and/or guardian regarding: the kb historical points, exam findings, and any diagnostic results supporting the discharge/admit diagnosis, radiology results, the need for outpatient follow up, a family practitioner, to return to the emergency department if symptoms worsen or persist or if there are any questions or concerns that arise at home. 05/27 17:46 Order name: Elbow Left 3 View XRAY; Complete Time: 19:37 kb Administered Medications: No medications were administered Disposition Summary: 05/27/22 19:38 Discharge Ordered Location: Home kb Condition: Stable kb Diagnosis - Abrasion of left elbow kb - Contusion of left elbow kb Followup: kb - With: Emergency Department - When: As needed - Reason: Worsening of condition Followup: kb - With: Private Physician - When: 2 - 3 days - Reason: Recheck today's complaints, Continuance of care, Re-evaluation by your physician Discharge Instructions: - Discharge Summary Sheet kb - Abrasion, Oobl-fw-Cesm kb - Elbow Contusion, Gnig-df-Xftw kb Forms: - Medication Reconciliation Form kb - Thank You Letter kb - Antibiotic Education kb - Prescription Opioid Use kb Prescriptions: - Diclofenac Sodium 75 mg Oral tablet,delayed release (DR/EC) - take 1 tablet by ORAL route 2 times per day As needed; 30 tablet; Refills: 0, kb Product Selection Permitted Signatures: Dispatcher [employer] EDCharisse Freeman, [employer]-C [employer]-Marysol Devine, RN RN
--- NOTE | 2022-05-27 19:38 | ER ---
Nurse's Notes [facility] Name: Naeem Capone Age: 26 yrs Sex: Female : 1995 Arrival Date: 05/27/2022 Time: 17:43 Bed 13 Private MD: Diagnosis: Abrasion of left elbow;Contusion of left elbow Presentation: 05/27 17:48 Chief complaint: Left elbow pain 8/10 after fall from golf cart 4 days ago. Coronavirus hb screen: At this time, the client does not indicate any symptoms associated with coronavirus-19. Ebola Screen: No symptoms or risks identified at this time. Initial Sepsis Screen: Does the patient meet any 2 criteria? No. Patient's initial sepsis screen is negative. Does the patient have a suspected source of infection? No. Patient's initial sepsis screen is negative. Risk Assessment: Do you want to hurt yourself or someone else? Patient reports no desire to harm self or others. Onset of symptoms was May 23, 2022. 17:48 Method Of Arrival: Ambulatory hb 17:48 Acuity: STEPHEN 4 hb Triage Assessment: 18:20 General: Appears in no apparent distress. comfortable, Behavior is calm, cooperative, kc6 appropriate for age. Injury Description: Laceration sustained to left elbow. Historical: - Allergies: 17:49 No Known Allergies; hb - PMHx: 17:49 ADD; hb Screenin:19 [facility] ED Fall Risk Assessment (Adult) History of falling in the last 3 months, kc6 including since admission No falls in past 3 months (0 pts) Confusion or Disorientation No (0 pts) Intoxicated or Sedated No (0 pts) Impaired Gait No (0 pts) Mobility Assist Device Used No (0 pt) Altered Elimination No (0 pt) Score/Fall Risk Level 0 - 2 = Low Risk. Abuse screen: Denies threats or abuse. Denies injuries from another. Nutritional screening: No deficits noted. Tuberculosis screening: No symptoms or risk factors identified. Assessment: 18:17 General: Appears in no apparent distress. comfortable, Behavior is calm, cooperative, kc6 appropriate for age. Pain: Complains of pain in left elbow Pain does not radiate. Pain currently is 7 out of 10 on a pain scale. Quality of pain is described as burning, Pain began 2-3 days ago. Is continuous, Alleviated by nothing. Aggravated by increased activity, repositioning, weight bearing, Noted to be resistant to movement, Also complains of no other associated symptoms. Neuro: Carney Agitation-Sedation Scale (RASS): 0 - Alert and Calm Level of Consciousness is awake, alert, obeys commands, Oriented to person, place, time, situation, Appropriate for age. Cardiovascular: Heart tones S1 S2 present Capillary refill < 3 seconds. Respiratory: Airway is patent Trachea midline Respiratory effort is even, unlabored, Respiratory pattern is regular, symmetrical, Breath sounds are clear bilaterally. GI: No signs and/or symptoms were reported involving the gastrointestinal system. : No signs and/or symptoms were reported regarding the genitourinary system. EENT: No signs and/or symptoms were reported regarding the EENT system. Derm: Skin has skin tears on left elbow Skin is dry, Skin is normal, Skin temperature is warm. Musculoskeletal: No signs and/or symptoms reported regarding the musculoskeletal system. 19:48 Reassessment: Patient appears in no apparent distress at this time. Patient and/or jb4 family updated on plan of care and expected duration. Pain level reassessed. Patient is alert, oriented x 3, equal unlabored respirations, skin warm/dry/pink. Vital Signs: 17:48 BP 137 / 83; Pulse 88; Resp 16; Temp 97.7; Pulse Ox 100% on R/A; Weight 63.5 kg; Height hb 5 ft. 8 in. (172.72 cm); Pain 8/10; 18:19 BP 115 / 66; Pulse 71; Resp 18 S; Pulse Ox 100% on R/A; Pain 7/10; kc6 19:30 BP 111 / 69; Pulse 67; Resp 16; Pulse Ox 99% on R/A; jb4 17:48 Body Mass Index 21.29 (63.50 kg, 172.72 cm) hb ED Course: 17:43 Patient arrived in ED. rg4 17:44 Charisse Urias FNP-C is [facility]. kb 17:44 Rodolfo Johnson MD is Attending Physician. kb 17:49 Triage completed. hb 17:50 Arm band placed on. hb 18:07 Rayne Torres, RN is Primary Nurse. kc6 18:20 Patient has correct armband on for positive identification. Bed in low position. Call kc6 light in reach. Side rails up X2. Adult w/ patient. 18:20 No provider procedures requiring assistance completed. kc6 18:50 Elbow Left 3 View XRAY In Process Unspecified. EDMS 19:30 Patient did not have IV access during this emergency room visit. jb4 Administered Medications: No medications were administered Medication: 19:30 VIS not applicable for this client. jb4 Outcome: 19:38 Discharge ordered by . teodora 19:49 Discharged to home ambulatory, with significant other. jb4 19:49 Condition: stable 19:49 Discharge instructions given to patient, Instructed on discharge instructions, follow up and referral plans. medication usage, Demonstrated understanding of instructions, follow-up care, medications, Prescriptions given X 1. 19:49 Patient left the ED. jb4 Signatures: Dispatcher [employer] EDMS Charisse Urias, CAP BLOCKER-C CAP BLOCKER-CkMarysol Matt, RN RN Isabelle Yan rg4 Diego Sun RN RN jb4 Rayne Torres RN RN kc6
[2022-05-27 19:53] VITALS: TEMP 97.7
[2022-05-27 19:55] VITALS: BP 111/69; O2SAT 99
== END 2022-05-27 19:49 | disposition home or self-care (01) ==
LOC: ER 17:39
DX: S50.312A Abrasion of left elbow, initial encounter (principal); S50.02XA Contusion of left elbow, initial encounter
CPT/HCPCS: 99283